=== PATIENT | female | born 1940 | race Caucasian/White ===

== ENCOUNTER 2019-02-17 07:10 | Observation (INO) ==
[2019-02-17] MEDS ORDERED: 0.9 % Sodium Chloride 1,000 ML IVC ONE (07:27)
[2019-02-17 07:55] LABS: INR 2.9; Prothrombin Time 32.6 Seconds (9.4-12.1)
[2019-02-17 08:07] LABS: Basophils % 0.7 %; Eosinophils # 0.1 K/mcL (0.0-0.6); Eosinophils % 1.3 %; Hematocrit 37.6 % (35.3-44.9); Hemoglobin 11.1 g/dL (11.5-15.4); Immature Granulocytes % 0.9 % (0-4); Lymphocytes # 1.1 K/mcL (0.6-4.6); Lymphocytes % 20.1 %; Mean Corpuscular HGB Conc 29.5 g/dL (31.6-35.5); Mean Corpuscular Hemoglobin 27.3 pg (28.0-33.3); Mean Corpuscular Volume 92.4 fL (83.0-100.0); Mean Platelet Volume 11.5 fL (9.4-12.4); Monocytes # 0.5 K/mcL (0.0-1.3); Monocytes % 8.5 %; Neutrophils # 3.7 K/mcL (1.6-8.9); Platelet Count 148 K/mcL (140-400); Red Blood Count 4.07 M/mcL (3.82-4.97); Red Cell Distribution Width 15.4 % (11.5-14.5); Segmented Neutrophils % 68.5 %
[2019-02-17 08:13] LABS: Alanine Aminotransferase 16 Units/L (7-52); Albumin 3.7 g/dL (3.5-5.7); Albumin/Globulin Ratio 1.2 (1.1-2.2); Alkaline Phosphatase 69 Units/L (34-104); Aspartate Amino Transferase 15 Units/L (13-39); BUN/Creatinine Ratio 29 (6-26); Bilirubin,Direct 0.1 mg/dL (0.0-0.2); Bilirubin,Indirect 0.3 mg/dL (0.0-1.2); Bilirubin,Total 0.4 mg/dL (0.3-1.0); Blood Urea Nitrogen 27 mg/dL (8-23); Calcium 9.1 mg/dL (8.6-10.3); Carbon Dioxide 28 mEq/L (23-29); Chloride 105 mEq/L (98-107); Glucose 134 mg/dL (70-105); Osmolality,Calculated 301 (280-300); Potassium 4.8 mEq/L (3.5-5.1); Sodium 142 mEq/L (136-145); Total Protein 6.7 g/dL (6.4-8.9); eGFR For Non-African Americans 59 (> 60)
--- NOTE | 2019-02-17 08:14 | Emergency Department Note ---
Disposition Clinical Impression: Lower GI bleed, Hematochezia Disposition: Admitted As Inpatient Condition: Good Time of Disposition: 09:31 GI Bleed HPI - General Chief complaint: ED GI Bleed Stated complaint: rectal bleeding Time Seen by Provider: 02/17/19 07:25 Source: patient Limitations: no limitations Nursing Notes Reviewed: Yes Vital Signs Reviewed: Yes - History of Present Illness HPI Narrative: 78-year-old female past medical history of hypertension, atrial fibrillation currently on warfarin presenting for a 2 week history of intermittent hematuria and hematochezia. Patient states that she follows with Dr. Sheth as PCP has received CT scan of the abdomen and pelvis for concerns of intermittent hematuria without remarkable results. Patient states she has not had recent hematuria but has not for the last 2 weeks that she should she has had intermittent hematochezia. Patient noticed that she has had blood on the toilet paper after wiping which has progressed to santa blood in the toilet bowl. Patient states that the blood is bright red or dark red in nature but denies black or sticky bowel movement. Patient states that she has no pain in her abdomen or otherwise, no chest pain, admits to some lightheadedness and dizziness as well as dyspnea. No other concerns or complaints at this time. Pt Subjective Complaint: gross hematochezia Onset (ago): week(s) Consistency: intermittent Severity: moderate Treatments Prior to Arrival: none - Related Data Home Medications Medication Instructions Recorded Confirmed Aspirin [Adult Low Dose Aspirin EC] 81 mg PO DAILY 01/01/16 02/17/19 Ferrous Sulfate [Iron] 325 mg PO BID 01/01/16 02/17/19 Furosemide [Lasix] 40 mg PO DAILY PRN 01/01/16 02/17/19 Gabapentin [Neurontin] 300 mg PO BID 01/01/16 02/17/19 LORazepam [Lorazepam] 1 mg PO PRN PRN 01/01/16 02/17/19 Metformin HCl [Glucophage] 850 mg PO BID 01/01/16 02/17/19 Metoprolol [Lopressor] 100 mg PO BID 01/01/16 02/17/19 Warfarin [Coumadin] 5 mg PO DAILY 01/01/16 12/01/17 glipiZIDE [Glucotrol] 10 mg PO BID 01/01/16 02/17/19 Fish Oil/Dha/Epa [Fish Oil 1,200 1,000 mg PO BID 01/29/16 02/17/19 mg Fish Oil] Warfarin [Coumadin] 7.5 mg PO Q48H 01/29/16 02/17/19 Hydrocodone/Acetaminophen [[place] 1 tab PO Q6H PRN 10/07/16 02/17/19 5-325 Tablet] Anastrozole [Arimidex] 1 mg PO DAILY 12/01/17 02/17/19 Lisinopril [Zestril] 5 mg PO DAILY 12/01/17 02/17/19 Previous Rx's Medication Instructions Recorded Acetaminophen [Tylenol] 650 mg PO Q6HR PRN #0 tablet 10/08/16 HYDROcodone/Acet 5/325 mg [[place] 1 tab PO Q6HR PRN #25 tablet 10/08/16 5-325 mg] Allergies Allergy/AdvReac Type Severity Reaction Status Date / Time adhesive Allergy Rash Verified 01/29/16 15:11 adhesive tape Allergy Rash Verified 01/29/16 15:11 Review of Systems: See history of present illness for greater detail. Constitutional: Denies: fever, chills HEENT: Denies dysphagia/odynophagia, lymphadenopathy Cardiovascular: Denies: chest pain Respiratory: Admits to dyspnea. Denies: cough, hemoptysis Gastrointestinal: Admits to hematochezia without gross melena. Denies: abdominal pain, nausea, vomiting, diarrhea, constipation, hematemesis, melena, Genitourinary: Admits hematuria Musculoskeletal: Denies: back pain, neck pain Integumentary: Denies: rash Neurological: Admits to lightheadedness/dizziness. Denies: headache, weakness, numbness, paresthesias, difficulty with ambulation. Endocrine: Denies: fatigue All systems ED: reviewed and negative except as stated. Review of Systems: As Per HPI Past Medical History - Past Medical History Source: patient Medical history: Reports: atrial fibrillation, cancer, diabetes, hypertension, thyroid disease, venous stasis, other Surgical history: Reports: cholecystectomy Psychiatric history: Reports: anxiety, depression - Social History Smoking Status: Former smoker Smokeless Tobacco Status: No Alcohol use: Reports: none Drug use: Reports: none Physical Exam Constitutional: No acute distress, [id number], engaged to conversation, speech is fluid, answers questions appropriately Neuro: GCS 15, no overt focal neurological deficits Head: Atraumatic, normocephalic Eyes: Pupils equal, round and reactive to light, no scleral icterus, no conjunctival injection Mouth: No lip swelling, perioral cyanosis, drooling, or trismus. Neck: Trachea midline without deviation. Anterior neck is supple without swelling, no overt thyromegaly noted. Chest: Symmetric chest wall rise Heart: Cardiac rhythm and rate are regular with S1 and S2 , no S3 or S4 appreciated, no murmurs, rubs, or clicks. Lungs: Lungs are clear to auscultation bilaterally, without accessory muscle use or prolonged expiratory phase. No wheezes, rhonchi, rales or stridor a ppreciated. *Abdomen: Abdomen is flat, soft to palpation, normal bowel sounds, no evidence of bruising, surgical incisions, or abnormal mass. No abdominal bruit auscultated. Non-distended, non-rigid, no organomegaly, no ascites appreciated. No pulsatile mass, no tenderness or guarding to palpation in all four quadrants, no rebound Extremities: No evidence of pedal edema, joint swelling or erythema. Pulses/motor/sensory intact in all 4 extremities. Back exam: No CVA tenderness. Psychiatric exam: Patient displays a normal affect and mood for the environment. No overt signs of hallucination. Integumentary: Patient appears pale, skin is otherwise warm, dry, intact. No rash, cyanosis, diaphoresis, erythema. GI exam. Chaperoned present in room there is santa blood to rectal exam, no signs of overt internal or external hemorrhoids. Hemoccult is positive. - General Limitations: no limitations General appearance: alert, in no apparent distress Course Course Narrative: 2 IVs started and in bilateral antecubital fossa 1 L fluids given CBC, BMP, hepatic panel, fibrinogen, PT/INR, fibrinogen Type and screen EKG/old EKG Hemoccult Vital Signs Temperature 98.1 F 02/17/19 07:13 Pulse Rate 106 02/17/19 07:13 Respiratory Rate 18 02/17/19 07:13 Blood Pressure 152/101 02/17/19 07:13 O2 Sat by Pulse Oximetry 96 02/17/19 07:13 Temperature 97.6 F 02/17/19 09:43 Pulse Rate 84 02/17/19 09:43 Respiratory Rate 16 02/17/19 09:43 Blood Pressure 135/92 02/17/19 09:43 O2 Sat by Pulse Oximetry 93 02/17/19 09:43 Oxygen Delivery Oxygen Delivery Room Air GI Bleed - MDM Narrative Medical decision making narrative: Santa blood seen in the rectal exam Hemoccult is positive Chest x-ray shows cardiomegaly with vascular congestion 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 Patient verbalizes understanding and agreement with this plan Dr. Vogel accepts admission. - Lab Data Lab results reviewed: Yes I reviewed the patient's lab results. Result diagrams: 02/17/19 07:37 02/17/19 07:37 Lab Results 02/17/19 02/17/19 02/17/19 Range/Units 07:15 07:37 07:37 WBC 5.4 (4.3-11.1) K/mcL RBC 4.07 (3.82-4.97) M/mcL Hgb 11.1 L (11.5-15.4) g/dL Hct 37.6 (35.3-44.9) % MCV 92.4 (83.0-100.0) fL MCH 27.3 L (28.0-33.3) pg MCHC 29.5 L (31.6-35.5) g/dL RDW 15.4 H (11.5-14.5) % Plt Count 148 (140-400) K/mcL MPV 11.5 (9.4-12.4) fL Immature Gran % 0.9 (0-4) % Seg Neutrophils % 68.5 % Lymphocytes % 20.1 % Monocytes % 8.5 % Eosinophils % 1.3 % Basophils % 0.7 % Neutrophils # 3.7 (1.6-8.9) K/mcL Lymphocytes # 1.1 (0.6-4.6) K/mcL Monocytes # 0.5 (0.0-1.3) K/mcL Eosinophils # 0.1 (0.0-0.6) K/mcL Basophils # 0.0 (0.0-0.2) K/mcL PT 32.6 H (9.4-12.1) Seconds INR 2.9 Fibrinogen 426 H (169-393) mg/dL Sodium (136-145) mEq/L Potassium (3.5-5.1) mEq/L Chloride (98-107) mEq/L Carbon Dioxide (23-29) mEq/L BUN (8-23) mg/dL Creatinine (0.60-1.20) mg/dL Est GFR ( Amer) (> 60) Est GFR (Non-Af Amer) (> 60) BUN/Creatinine Ratio (6-26) Glucose (70-105) mg/dL Calculated Osmolality (280-300) Calcium (8.6-10.3) mg/dL Total Bilirubin (0.3-1.0) mg/dL Direct Bilirubin (0.0-0.2) mg/dL Indirect Bilirubin (0.0-1.2) mg/dL AST (13-39) Units/L ALT (7-52) Units/L Alkaline Phosphatase (34-104) Units/L Serum Total Protein (6.4-8.9) g/dL Albumin (3.5-5.7) g/dL Globulin (2.4-3.5) g/dL Albumin/Globulin Ratio (1.1-2.2) Stool Occult Bld Scrn Positive A (Negative) Blood Type Antibody Screen 02/17/19 02/17/19 Range/Units 07:37 07:37 WBC (4.3-11.1) K/mcL RBC (3.82-4.97) M/mcL Hgb (11.5-15.4) g/dL Hct (35.3-44.9) % MCV (83.0-100.0) fL MCH (28.0-33.3) pg MCHC (31.6-35.5) g/dL RDW (11.5-14.5) % Plt Count (140-400) K/mcL MPV (9.4-12.4) fL Immature Gran % (0-4) % Seg Neutrophils % % Lymphocytes % % Monocytes % % Eosinophils % % Basophils % % Neutrophils # (1.6-8.9) K/mcL Lymphocytes # (0.6-4.6) K/mcL Monocytes # (0.0-1.3) K/mcL Eosinophils # (0.0-0.6) K/mcL Basophils # (0.0-0.2) K/mcL PT (9.4-12.1) Seconds INR Fibrinogen (169-393) mg/dL Sodium 142 (136-145) mEq/L Potassium 4.8 (3.5-5.1) mEq/L Chloride 105 (98-107) mEq/L Carbon Dioxide 28 (23-29) mEq/L BUN 27 H (8-23) mg/dL Creatinine 0.92 (0.60-1.20) mg/dL Est GFR ( Amer) > 60 (> 60) Est GFR (Non-Af Amer) 59 L (> 60) BUN/Creatinine Ratio 29 H (6-26) Glucose 134 H (70-105) mg/dL Calculated Osmolality 301 H (280-300) Calcium 9.1 (8.6-10.3) mg/dL Total Bilirubin 0.4 (0.3-1.0) mg/dL Direct Bilirubin 0.1 (0.0-0.2) mg/dL Indirect Bilirubin 0.3 (0.0-1.2) mg/dL AST 15 (13-39) Units/L ALT 16 (7-52) Units/L Alkaline Phosphatase 69 (34-104) Units/L Serum Total Protein 6.7 (6.4-8.9) g/dL Albumin 3.7 (3.5-5.7) g/dL Globulin 3.0 (2.4-3.5) g/dL Albumin/Globulin Ratio 1.2 (1.1-2.2) Stool Occult Bld Scrn (Negative) Blood Type A POSITIVE Antibody Screen NEGATIVE - Radiology Data Radiology results reviewed: Yes I reviewed the patient's radiology results. Chest X-Ray 02/17/19 07:30 IMPRESSION: Cardiomegaly with central vascular congestion. D/ / Nikolas Peralta MD / Nikolas Peralta MD Interpreting Provider: Nikolas Peralta MD - EKG Data EKG attestation: Yes I reviewed and interpreted this EKG. EKG results narrative: Patient EKG shows atrial fibrillation with a heart rate of 92 bpm, QRS duration 94 ms, QT/QTc interval 364/451 ms respectively. There are no significant ST segment elevations, depressions, pathologic Q waves, abnormal T-wave inversions, or any other signs of acute ischemic change. This EKG performed today appears to be generally consistent with prior EKG performed on September 302016.
--- NOTE | 2019-02-17 09:10 | Emergency Department Note ---
Disposition Clinical Impression: Lower GI bleed Disposition: Admitted As Inpatient Condition: Good Time of Disposition: 09:00 General Adult HPI - General Chief complaint: ED GI Bleed Stated complaint: rectal bleeding Time Seen by Provider: 02/17/19 07:25 Source: patient Limitations: no limitations - History of Present Illness Pain Scale: 0 - Related Data Home Medications Medication Instructions Recorded Confirmed Aspirin [Adult Low Dose Aspirin EC] 81 mg PO DAILY 01/01/16 12/01/17 Ferrous Sulfate [Iron] 325 mg PO DAILY 01/01/16 12/01/17 Furosemide [Lasix] 40 mg PO DAILY PRN 01/01/16 12/01/17 Gabapentin [Neurontin] 300 mg PO TID 01/01/16 12/01/17 LORazepam [Lorazepam] 1 mg PO DAILY 01/01/16 12/01/17 Metformin HCl [Glucophage] 850 mg PO BID 01/01/16 12/01/17 Metoprolol [Lopressor] 100 mg PO BID 01/01/16 12/01/17 Warfarin [Coumadin] 5 mg PO Q48H 01/01/16 12/01/17 glipiZIDE [Glucotrol] 10 mg PO BID 01/01/16 12/01/17 Fish Oil/Dha/Epa [Fish Oil 1,200 1,000 mg PO BID 01/29/16 12/01/17 mg Fish Oil] Warfarin [Coumadin] 7.5 mg PO Q48H 01/29/16 12/01/17 Hydrocodone/Acetaminophen [[place] 1 tab PO Q6H PRN 10/07/16 12/01/17 5-325 Tablet] Anastrozole [Arimidex] 1 mg PO DAILY 12/01/17 12/01/17 Lisinopril [Zestril] 5 mg PO DAILY 12/01/17 12/01/17 Previous Rx's Medication Instructions Recorded Acetaminophen [Tylenol] 650 mg PO Q6HR PRN #0 tablet 10/08/16 HYDROcodone/Acet 5/325 mg [[place] 1 tab PO Q6HR PRN #25 tablet 10/08/16 5-325 mg] Allergies Allergy/AdvReac Type Severity Reaction Status Date / Time adhesive Allergy Rash Verified 01/29/16 15:11 adhesive tape Allergy Rash Verified 01/29/16 15:11 Past Medical History - Past Medical History Medical history: Reports: atrial fibrillation, cancer, diabetes, hypertension, thyroid disease, venous stasis, other Surgical history: Reports: cholecystectomy Psychiatric history: Reports: anxiety, depression - Social History Smoking Status: Former smoker Smokeless Tobacco Status: No Alcohol use: Reports: none Drug use: Reports: none Physical Exam - General Limitations: no limitations General appearance: alert, in no apparent distress Course Vital Signs Temperature 98.1 F 02/17/19 07:13 Pulse Rate 106 02/17/19 07:13 Respiratory Rate 18 02/17/19 07:13 Blood Pressure 152/101 02/17/19 07:13 O2 Sat by Pulse Oximetry 96 02/17/19 07:13 Temperature 98.1 F 02/17/19 07:13 Pulse Rate 79 02/17/19 08:53 Respiratory Rate 16 02/17/19 08:53 Blood Pressure 139/78 02/17/19 08:53 O2 Sat by Pulse Oximetry 98 02/17/19 08:53 Oxygen Delivery Oxygen Delivery Room Air Medical Decision Making - Lab Data Result diagrams: 02/17/19 07:37 02/17/19 07:37 Lab Results 02/17/19 02/17/19 02/17/19 Range/Units 07:15 07:37 07:37 WBC 5.4 (4.3-11.1) K/mcL RBC 4.07 (3.82-4.97) M/mcL Hgb 11.1 L (11.5-15.4) g/dL Hct 37.6 (35.3-44.9) % MCV 92.4 (83.0-100.0) fL MCH 27.3 L (28.0-33.3) pg MCHC 29.5 L (31.6-35.5) g/dL RDW 15.4 H (11.5-14.5) % Plt Count 148 (140-400) K/mcL MPV 11.5 (9.4-12.4) fL Immature Gran % 0.9 (0-4) % Seg Neutrophils % 68.5 % Lymphocytes % 20.1 % Monocytes % 8.5 % Eosinophils % 1.3 % Basophils % 0.7 % Neutrophils # 3.7 (1.6-8.9) K/mcL Lymphocytes # 1.1 (0.6-4.6) K/mcL Monocytes # 0.5 (0.0-1.3) K/mcL Eosinophils # 0.1 (0.0-0.6) K/mcL Basophils # 0.0 (0.0-0.2) K/mcL PT 32.6 H (9.4-12.1) Seconds INR 2.9 Fibrinogen 426 H (169-393) mg/dL Sodium (136-145) mEq/L Potassium (3.5-5.1) mEq/L Chloride (98-107) mEq/L Carbon Dioxide (23-29) mEq/L BUN (8-23) mg/dL Creatinine (0.60-1.20) mg/dL Est GFR ( Amer) (> 60) Est GFR (Non-Af Amer) (> 60) BUN/Creatinine Ratio (6-26) Glucose (70-105) mg/dL Calculated Osmolality (280-300) Calcium (8.6-10.3) mg/dL Total Bilirubin (0.3-1.0) mg/dL Direct Bilirubin (0.0-0.2) mg/dL Indirect Bilirubin (0.0-1.2) mg/dL AST (13-39) Units/L ALT (7-52) Units/L Alkaline Phosphatase (34-104) Units/L Serum Total Protein (6.4-8.9) g/dL Albumin (3.5-5.7) g/dL Globulin (2.4-3.5) g/dL Albumin/Globulin Ratio (1.1-2.2) Stool Occult Bld Scrn Positive A (Negative) Blood Type Antibody Screen 02/17/19 02/17/19 Range/Units 07:37 07:37 WBC (4.3-11.1) K/mcL RBC (3.82-4.97) M/mcL Hgb (11.5-15.4) g/dL Hct (35.3-44.9) % MCV (83.0-100.0) fL MCH (28.0-33.3) pg MCHC (31.6-35.5) g/dL RDW (11.5-14.5) % Plt Count (140-400) K/mcL MPV (9.4-12.4) fL Immature Gran % (0-4) % Seg Neutrophils % % Lymphocytes % % Monocytes % % Eosinophils % % Basophils % % Neutrophils # (1.6-8.9) K/mcL Lymphocytes # (0.6-4.6) K/mcL Monocytes # (0.0-1.3) K/mcL Eosinophils # (0.0-0.6) K/mcL Basophils # (0.0-0.2) K/mcL PT (9.4-12.1) Seconds INR Fibrinogen (169-393) mg/dL Sodium 142 (136-145) mEq/L Potassium 4.8 (3.5-5.1) mEq/L Chloride 105 (98-107) mEq/L Carbon Dioxide 28 (23-29) mEq/L BUN 27 H (8-23) mg/dL Creatinine 0.92 (0.60-1.20) mg/dL Est GFR ( Amer) > 60 (> 60) Est GFR (Non-Af Amer) 59 L (> 60) BUN/Creatinine Ratio 29 H (6-26) Glucose 134 H (70-105) mg/dL Calculated Osmolality 301 H (280-300) Calcium 9.1 (8.6-10.3) mg/dL Total Bilirubin 0.4 (0.3-1.0) mg/dL Direct Bilirubin 0.1 (0.0-0.2) mg/dL Indirect Bilirubin 0.3 (0.0-1.2) mg/dL AST 15 (13-39) Units/L ALT 16 (7-52) Units/L Alkaline Phosphatase 69 (34-104) Units/L Serum Total Protein 6.7 (6.4-8.9) g/dL Albumin 3.7 (3.5-5.7) g/dL Globulin 3.0 (2.4-3.5) g/dL Albumin/Globulin Ratio 1.2 (1.1-2.2) Stool Occult Bld Scrn (Negative) Blood Type A POSITIVE Antibody Screen NEGATIVE Attestation Statement - Attestation Attestation: I examined this patient and my medical decision-making was reviewed with the Resident Physician. I agree with the documented findings, disposition and treatment plan as described except to the extent set forth below. Rectal bleeding on Coumadin. Tachycardic on arrival with normal blood pressure, heart rate came down with IV fluid administration. Denies any abdominal pain. She has had some black stools, but takes iron therapy so this is normal for her. Dark red blood on Dr. Dominguez's rectal exam. Lightheadedness and dizziness without syncope, presyncope, chest pain or shortness of breath. Hemoglobin 11.1, INR therapeutic at 2.9. BUN Not significantly elevated. Will not reverse her anticoagulation at this point as she is hemodynamically stable. Patient accepted for admission by the hospitalist.
[2019-02-17] MEDS ORDERED: *HR* LORazepam 1 MG TABLET PO PRN (10:24)
[2019-02-17] MEDS ORDERED: Dextrose Gel 15 GM/37.5 ML TUBE PO PRN ×2 (10:27)
[2019-02-17] MEDS ORDERED: Ondansetron 4 MG/2 ML VIAL IVP PRN (10:27)
[2019-02-17] MEDS ORDERED: D5% in Water 1,000 ML IVC PRN (10:27)
[2019-02-17] MEDS ORDERED: *HR* Dextrose 50 % in Water (Syg) 50 ML SYRINGE IVP PRN (10:27)
[2019-02-17] MEDS ORDERED: Naloxone 0.4 MG/ML INJ IVP PRN (10:27)
--- NOTE | 2019-02-17 10:30 | Internal Med History&Physical ---
<Nikolas Figueroa - Last Filed: 02/17/19 10:51> Date of Encounter: 02/17/19 Time of Encounter: 10:23 Internal Medicine - H&P: HPI Chief complaint: Bright red blood per rectum Admitted From: Emergency Dept Plans for Post Hospital Care: Home History of present illness: Ms. Odell is a 78 year old female with a past medical history of diabetes mellitus, atrial fibrillation on warfarin, hypertension, and morbid obesity who presented to the ED complaining of bright red blood per rectum since last night. Patient reports symptoms initially started as blood on the tissue paper but have now progressed to making the water in the the toilet bowl red blood. Of note, patient reports hematuria [address] abdomen pelvis on 01/25/19 revealed colonic diverticula without acute diverticulitis, right renal cysts, lobular liver suspicious for cirrhosis, and enlarging left adrenal myelolipoma when compared to 06/04/2010 with an increasing soft tissue component, and a smaller 1.3 cm right adrenal myelolipoma which is not seen on the prior exam. In the ED, patient was hemodynamically stable, labs reveal hemoglobin 11.1 (stable from previous results), INR 2.9, and stool occult blood test was positive with gross blood in the rectal vault. Patient was given IV fluids, made NPO, and GI has been consulted. Past Med Surg Social Fam HX - Past Medical History Medical history: atrial fibrillation, cancer, diabetes, hypertension, thyroid disease, venous stasis, other Additional medical history: breast cancer Psychiatric history: anxiety, depression - Past Surgical History Surgical History: cholecystectomy Additional surgical history: Hip replacement x2, left masectomy - Social History Smoking Status: Former smoker Smokeless Tobacco Status: No Alcohol use: none Drug use: none - Family History Father Living Status: Age at : 62 Cause of : MD Mother Living Status: Age at : 33 Cause of : cancer Hx Family Cancer: Yes Grandmother Living Status: Cause of : stomach cancer Internal Medicine - H&P: Meds Furosemide [Lasix] 40 mg PO DAILY PRN 01/01/16 [History] Warfarin [Coumadin] 5 mg PO MOTHSA 01/01/16 [History] Fish Oil/Dha/Epa [Fish Oil 1,200 mg Fish Oil] 1 cap PO BID 01/29/16 [History] Anastrozole [Arimidex] 1 mg PO DAILY 12/01/17 [History] Lisinopril [Zestril] 5 mg PO DAILY 12/01/17 [History] Acetaminophen [Tylenol] 1,000 mg PO Q6HR PRN 02/17/19 [History] Aspirin [Adult Aspirin Regimen] 81 mg PO DAILY 02/17/19 [History] Ferrous Sulfate 325 mg PO BID 02/17/19 [History] Gabapentin [Neurontin] 300 mg PO BID 02/17/19 [History] HYDROcodone/Acet 5/325 mg [[place] 5-325 mg] 1 tab PO Q6HR PRN 02/17/19 [History] LORazepam [Ativan] 1 mg PO DAILY PRN 02/17/19 [History] Metoprolol Tartrate 100 mg PO BID 02/17/19 [History] Warfarin [Coumadin] 7.5 mg PO SUTUWEFR 02/17/19 [History] glipiZIDE [Glipizide] 10 mg PO BID 02/17/19 [History] metFORMIN [Glucophage] 850 mg PO BIDWM 02/17/19 [History] Allergy/AdvReac Type Severity Reaction Status Date / Time adhesive Allergy Rash Verified 02/17/19 19:22 adhesive tape Allergy Rash Verified 02/17/19 19:22 All Systems PM: A 10-system review of systems was performed and is negative for pertinent findings except as documented above in the HPI. - Constitutional Constitutional: fatigue, weakness, no chills, no falls - EENT Eyes: no blurry vision, no diplopia Nose, mouth and throat: no sinus pain, no sore throat - Cardiovascular Cardiovascular ROS IM: no chest pain, no dyspnea - Respiratory Respiratory: no cough, no wheezing - Gastrointestinal Gastrointestinal: abdominal pain, hematochezia, melena, no hematemesis, no [place], no vomiting - Genitourinary Genitourinary: hematuria, no urinary frequency, no urinary urgency - Musculoskeletal Musculoskeletal ROS IM: no back pain, no numbness, no tingling - Integumentary Integumentary IM: no new lesions, no rash - Neurological Neurological ROS: dizziness, weakness, no numbness, no tingling - Psychiatric Psychiatric: no anxiety, no depression - Endocrine Endocrine IM: fatigue, no polydipsia, no polyphagia, no polyuria - Constitutional Vitals: Temp Pulse Resp BP Pulse Ox 97.6 F 84 16 135/92 93 02/17/19 09:43 02/17/19 09:43 02/17/19 09:43 02/17/19 09:43 02/17/19 09:43 General appearance: Present: cooperative, A&O X 3, morbidly obese, pleasant, answers questions appropriately Exam: awake - Head Head exam: Present: atraumatic, normocephalic - Eye Eye exam: Present: EOMI, conjuntiva pink (Pale), sclera anicteric. Absent: PERRL Pupils: Absent: PERRL - ENT ENT exam: Present: mucous membranes dry, normal oropharynx - Neck Neck exam general surgery: Present: supple, trachea midline - Respiratory Respiratory exam: Present: CTAB. Absent: accessory muscle use, rales, rhonchi, wheezes - Cardiovascular Cardiovascular exam: Present: RRR, +S1, +S2. Absent: diastolic murmur, gallop, rubs, systolic murmur - GI/Abdominal GI/Abdominal exam: Present: normal bowel sounds, soft, no peritoneal signs. Absent: distended, tenderness - Extremities Exam Extremities exam: Present: warm, radial pulses palpable and symmetrical. Absent: calf tenderness, cyanotic, pedal edema - Back Exam Back exam: Present: normal inspection. Absent: paraspinal tenderness, tenderness - Neurological Exam Neurological exam: Present: alert, CN II-XII intact, oriented X3, no focal deficits. Absent: facial droop, speech deficit - Psychiatric Psychiatric exam: Present: normal affect, normal mood - Skin Skin exam: Present: dry, intact, pallor. Absent: normal color Internal Med - H&P Results - Labs CBC & Chem 7: 02/17/19 07:37 02/17/19 07:37 Labs: Short CBC 02/17/19 Range/Units 07:37 WBC 5.4 (4.3-11.1) K/mcL Hgb 11.1 L (11.5-15.4) g/dL Hct 37.6 (35.3-44.9) % Plt Count 148 (140-400) K/mcL Neutrophils # 3.7 (1.6-8.9) K/mcL BMP 02/17/19 07:37 Sodium 142 Potassium 4.8 Chloride 105 Carbon Dioxide 28 BUN 27 H Creatinine 0.92 Glucose 134 H Calcium 9.1 Liver Function 02/17/19 Range/Units 07:37 Total Bilirubin 0.4 (0.3-1.0) mg/dL Direct Bilirubin 0.1 (0.0-0.2) mg/dL AST 15 (13-39) Units/L ALT 16 (7-52) Units/L Alkaline Phosphatase 69 (34-104) Units/L Albumin 3.7 (3.5-5.7) g/dL - Pulse Oximetry Interpretation Digit-Finger O2 Sat by Pulse Oximetry: 93 (On Ambient air) - EKG Data -: EKG Interpreted by Myself Rate: tachycardia (A fibrillation heart rate 92, normal axis, no signs of ST elevation or depression) - EKG Data Prior EKG available for review: yes When compared to previous EKG: there is no significant change - Impressions ITS Impressions Chest X-Ray 02/17/19 07:30 IMPRESSION: Cardiomegaly with central vascular congestion. D/ / Nikolas Peralta MD / Nikolas Peralta MD Interpreting Provider: Nikolas Peralta MD - Assessment and Plan (1) Lower GI bleed Current Visit: Yes Status: Acute Assessment and plan: 78-year-old female on Coumadin for A. fib presents with bright red blood blood per rectum. CT abdomen pelvis on 01/25/19 revealed colonic diverticula without acute diverticulitis Patient denies having a previous colonoscopy. Patient is hemodynamically stable, labs reveal hemoglobin 11.1 (stable from p revious results), INR 2.9, and stool occult blood test was positive with gross blood in the rectal vault. Patient was given IV fluids in the ED. Trend H&H Type and screen performed. NPO, and GI has been consulted. (2) Anemia Current Visit: Yes Status: Acute Assessment and plan: Patient with acute lower GI bleed Hemoglobin 11.1 (stable from previous results) Trend H&H Type and screen performed. Qualifiers: Anemia type: unspecified type Qualified Code(s): D64.9 - Anemia, unspecified (3) A-fib Current Visit: Yes Status: Chronic Assessment and plan: Patient on Coumadin for atrial fibrillation. Hold Coumadin. Continue heparin for now Qualifiers: Atrial fibrillation type: chronic Qualified Code(s): I48.2 - Chronic atrial fibrillation (4) DM type 2 (diabetes mellitus, type 2) Current Visit: Yes Status: Chronic Assessment and plan: Hemoglobin A1c 6.0 on 12/28/18 Nothing by mouth, continue Accu-Cheks and low dose SSI every 6 hours. Qualifiers: Diabetes mellitus jail insulin use: without terminal operations manager use Diabetes mellitus complication status: without complication Qualified Code(s): E11.9 - Type 2 diabetes mellitus without complications (5) Morbid obesity with BMI of 45.0-49.9, adult Current Visit: Yes Status: Chronic Assessment and plan: Lifestyle modification. (6) DVT prophylaxis Current Visit: Yes Status: Acute Assessment and plan: Heparin subcutaneous TID - Time Spent With Patient Total time spent is greater than 50% in coordination of care (as documented) at patient's floor/unit and/or counseling patient: <Zoya Mahoney - Last Filed: 02/19/19 10:51> Date of Encounter: 02/17/19 Internal Medicine - H&P: HPI History of present illness: Ms. Odell is a 78 year old female All Systems PM: A 10-system review of systems was performed and is negative for pertinent f indings except as documented above in the HPI. - Constitutional Vitals: Temp Pulse Resp BP Pulse Ox 98.4 F 77 17 152/79 92 02/19/19 10:23 02/19/19 10:23 02/19/19 10:23 02/19/19 10:23 02/19/19 10:23 Internal Med - H&P Results - Labs CBC & Chem 7: 02/19/19 07:21 02/19/19 07:21 Labs: Short CBC 02/19/19 Range/Units 07:21 WBC 7.2 (4.3-11.1) K/mcL Hgb 12.0 (11.5-15.4) g/dL Hct 39.8 (35.3-44.9) % Plt Count 151 (140-400) K/mcL Neutrophils # 5.2 (1.6-8.9) K/mcL BMP 02/19/19 07:21 Sodium 142 Potassium 4.2 Chloride 107 Carbon Dioxide 26 BUN 15 Creatinine 0.88 Glucose 132 H Calcium 9.4 - Impressions ITS Impressions Chest X-Ray 02/17/19 07:30 IMPRESSION: Cardiomegaly with central vascular congestion. D/ / Nikolas Peralta MD / Nikolas Peralta MD Interpreting Provider: Nikolas Peralta MD - Assessment and Plan (1) DM type 2 (diabetes mellitus, type 2) Current Visit: Yes Status: Chronic Qualifiers: Diabetes mellitus jail insulin use: without terminal operations manager use Diabetes mellitus complication status: without complication Qualified Code(s): E11.9 - Type 2 diabetes mellitus without complications (2) A-fib Current Visit: Yes Status: Chronic Qualifiers: Atrial fibrillation type: chronic Qualified Code(s): I48.2 - Chronic atrial fibrillation (3) DVT prophylaxis Current Visit: Yes Status: Acute (4) Morbid obesity with BMI of 45.0-49.9, adult Current Visit: Yes Status: Chronic (5) Rectal bleeding Current Visit: Yes Status: Acute (6) Abnormal abdominal CT scan Current Visit: Yes Status: Chronic (7) Hypertension Current Visit: Yes Status: Chronic Qualifiers: Hypertension type: essential hypertension Qualified Code(s): I10 - Essential (primary) hypertension - Time Spent With Patient Total time spent is greater than 50% in coordination of care (as documented) at patient's floor/unit and/or counseling patient: - Attending Attestation I personally and independently interviewed and examined the patient, and I r eviewed the patient's medical records. I am in agreement with the assessment and proposed treatment plan. I discussed my findings and recommendation with the patient and answer his questions. The patient's medical records were edited to accurately reflect this encounter.
[2019-02-17] MEDS ORDERED: *HR* Phytonadione 10 MG/ML AMPUL SQ ONE (11:36)
[2019-02-17 11:43] LABS: Bilirubin,Urine Negative (Negative); Blood,Urine Large (Negative); Clarity,Urine Clear (Clear); Color,Urine Yellow (Yellow); Glucose,Urine (UA) Normal (Normal); Ketones,Urine Negative (Negative); Leukocyte Esterase,Urine Negative (Negative); Nitrite,Urine Negative (Negative); Protein,Urine Negative (Neg-Trace); Specific Gravity,Urine 1.005 (1.010-1.025); Urobilinogen,Urine Normal (Normal)
[2019-02-17 11:45] LABS: Bacteria,Urine None Seen per hpf (None-Few); Hyaline Casts,Urine None Seen per lpf (None-Few); RBC,Urine 15-30 per hpf (0-3); Squamous Epithelial Cell,Urine Many per lpf (None-Few)
[2019-02-17] MEDS: Insulin LISPRO 300 UNITS/3 ML VIAL SQ SCH ×2 (12:56→19:39)
[2019-02-17] MEDS ORDERED: PEG/Electrolytes/Ascorbic Acid 1 EACH POWD.PACK PO ONE (13:01)
--- NOTE | 2019-02-17 13:12 | Internal Medicine Consult Note ---
Date of Encounter: 02/17/19 Time of Encounter: 12:15 - Assessment and Plan (1) Rectal bleeding Current Visit: Yes Status: Acute Assessment and plan: The blood she is seeing sounds quite distal, maybe hemorroidal. Does not sound worrisome, but she does have microcytic incdices. Will have to check to see if Iron studies were done in the past. The fact that she had some hematuria as well, I beleive we need to stop the ASA and the Fish Oil. I have recommended bowel prep today, with Colonoscopy tomorrow. Risks such as perforation discussed. There are no alternatives. (2) DM type 2 (diabetes mellitus, type 2) Current Visit: Yes Status: Chronic Qualifiers: Diabetes mellitus skilled nursing insulin use: without skilled nursing use Diabetes mellitus complication status: without complication Qualified Code(s): E11.9 - Type 2 diabetes mellitus without complications (3) Morbid obesity with BMI of 45.0-49.9, adult Current Visit: Yes Status: Chronic (4) A-fib Current Visit: Yes Status: Chronic Qualifiers: Atrial fibrillation type: chronic Qualified Code(s): I48.2 - Chronic atrial fibrillation (5) Abnormal abdominal CT scan Current Visit: Yes Status: Chronic Assessment and plan: She does have an adrenal lesion that will requrire more work. I am concerned she could have Cirrhosis from fatty liver given the co-morbids.. as well. That can be evaluated as outpt. Internal Medicine - CN: HPI - Data of Consult Requesting Physician: Zoya Mahoney - Consult Narrative Reason for consult: Rectal Bleeding History of present illness: Ms. Odell is a 78 year old female Past Med Surg Social Fam HX - Past Medical History Medical history: atrial fibrillation, diabetes, hypertension, thyroid disease, venous stasis, other Additional medical history: breast cancer. Morbid obesity Psychiatric history: anxiety, depression - Past Surgical History Surgical History: cholecystectomy Additional surgical history: Hip replacement x2, left masectomy - Social History Smoking Status: Former smoker Smokeless Tobacco Status: No Alcohol use: none Drug use: none - Family History Father Living Status: Age at : 62 Cause of : [place] Mother Living Status: Age at : 33 Cause of : cancer Hx Family Cancer: Yes Grandmother Living Status: Cause of : stomach cancer - Constitutional Constitutional: no anorexia, no chills, no fatigue, no fever(s), no weakness, no weight gain, no weight loss - Cardiovascular Cardiovascular ROS IM: edema, irregular heart rhythm, lightheadedness, no chest pain, no diaphoresis, no dyspnea on exertion, no syncope - Respiratory Respiratory: no cough, no dyspnea, no pain on inspiration, no chest congestion - Gastrointestinal Gastrointestinal: change in bowel habits, hematemesis, no abdominal pain, no coffee ground emesis, no constipation, no heartburn, no loose stools, no melena, no nausea, no vomiting Additional comments: Initially 5 days ago appreciated blood on tissue... then the commode was more pink and noted more blood on paper.. Never had blood clots, anal pain, or seeing blood with stool. - Genitourinary Genitourinary: hematuria Internal Medicine - CN: Meds Aspirin [Adult Low Dose Aspirin EC] 81 mg PO DAILY 01/01/16 [History] Ferrous Sulfate [Iron] 325 mg PO BID 01/01/16 [History] Furosemide [Lasix] 40 mg PO DAILY PRN 01/01/16 [History] Gabapentin [Neurontin] 300 mg PO BID 01/01/16 [History] LORazepam [Lorazepam] 1 mg PO PRN PRN 01/01/16 [History] Metformin HCl [Glucophage] 850 mg PO BID 01/01/16 [History] Metoprolol [Lopressor] 100 mg PO BID 01/01/16 [History] Warfarin [Coumadin] 5 mg PO DAILY 01/01/16 [History] glipiZIDE [Glucotrol] 10 mg PO BID 01/01/16 [History] Fish Oil/Dha/Epa [Fish Oil 1,200 mg Fish Oil] 1,000 mg PO BID 01/29/16 [History] Warfarin [Coumadin] 7.5 mg PO Q48H 01/29/16 [History] Hydrocodone/Acetaminophen [[place] 5-325 Tablet] 1 tab PO Q6H PRN 10/07/16 [History] Acetaminophen [Tylenol] 650 mg PO Q6HR PRN #0 tablet 10/08/16 [Rx] HYDROcodone/Acet 5/325 mg [[place] 5-325 mg] 1 tab PO Q6HR PRN #25 tablet 10/08/16 [Rx] Anastrozole [Arimidex] 1 mg PO DAILY 12/01/17 [History] Lisinopril [Zestril] 5 mg PO DAILY 12/01/17 [History] Allergy/AdvReac Type Severity Reaction Status Date / Time adhesive Allergy Rash Verified 01/29/16 15:11 adhesive tape Allergy Rash Verified 01/29/16 15:11 Internal Med - CN: Exam - Constitutional Vitals: Temp Pulse Resp BP Pulse Ox 97.6 F 84 16 135/92 93 02/17/19 09:43 02/17/19 09:43 02/17/19 09:43 02/17/19 09:43 02/17/19 09:43 General appearance IM: Present: A&O X 3, morbidly obese, pleasant, answers questions appropriately - Head Head exam: Present: normal inspection - Eye Eye exam: Present: PERRL, conjuntiva pink, sclera anicteric - Neck Neck exam general surgery: Present: supple, trachea midline - Respiratory Respiratory exam: Present: CTAB. Absent: rales, respiratory distress, wheezes, tachypnea - Cardiovascular Cardiovascular exam IM: Present: irregular rhythm, +S1, +S2. Absent: JVD, tachycardia - GI/Abdominal GI/Abdominal exam IM: Present: firm, normal bowel sounds. Absent: guarding, rebound, rigid, splenomegaly, tenderness, no peritoneal signs - Extremities Exam Additional comments: 1 + pitting to the knees Internal Medicine - CN: Reslt - Labs CBC & Chem 7: 02/17/19 07:37 02/17/19 07:37 Labs: Short CBC 02/17/19 Range/Units 07:37 WBC 5.4 (4.3-11.1) K/mcL Hgb 11.1 L (11.5-15.4) g/dL Hct 37.6 (35.3-44.9) % Plt Count 148 (140-400) K/mcL Neutrophils # 3.7 (1.6-8.9) K/mcL BMP 02/17/19 07:37 Sodium 142 Potassium 4.8 Chloride 105 Carbon Dioxide 28 BUN 27 H Creatinine 0.92 Glucose 134 H Calcium 9.1 Liver Function 02/17/19 Range/Units 07:37 Total Bilirubin 0.4 (0.3-1.0) mg/dL Direct Bilirubin 0.1 (0.0-0.2) mg/dL AST 15 (13-39) Units/L ALT 16 (7-52) Units/L Alkaline Phosphatase 69 (34-104) Units/L Albumin 3.7 (3.5-5.7) g/dL Urine 02/17/19 Range/Units 11:23 Urine Color Yellow (Yellow) Urine Clarity Clear (Clear) Urine pH 6.0 (5.0-8.0) pH Units Ur Specific [place] 1.005 L (1.010-1.025) Urine Protein Negative (Neg-Trace) mg/dL Urine Glucose (UA) Normal (Normal) mg/dL - ABG Interpretation ABG results: PT/INR, D-dimer PT 32.6 Seconds (9.4-12.1) H 02/17/19 07:37 - Impressions Impressions Chest X-Ray 02/17/19 07:30 IMPRESSION: Cardiomegaly with central vascular congestion. D/ / Nikolas Peralta MD / Nikolas Peralta MD Interpreting Provider: Nikolas Peralta MD Consult Discharge Plan - Plan Referrals: Delgado Hedrick DO [Primary Care Provider] -
[2019-02-17] MEDS ORDERED: *HR* Heparin 5,000 UNIT/ML VIAL SQ SCH (14:00)
[2019-02-17 14:43] LABS: % Iron Saturation 19 % (15-50); Iron 70 mcg/dL (50-170); Transferrin 268 mg/dL (203-362)
[2019-02-17 14:46] LABS: Ferritin 146 ng/mL (10-120)
[2019-02-17 16:19] LABS: Basophils # 0.1 K/mcL (0.0-0.2); Basophils % 0.9 %; Eosinophils # 0.1 K/mcL (0.0-0.6); Eosinophils % 1.7 %; Hematocrit 39.8 % (35.3-44.9); Hemoglobin 11.9 g/dL (11.5-15.4); Immature Granulocytes % 0.9 % (0-4); Lymphocytes # 1.2 K/mcL (0.6-4.6); Lymphocytes % 20.5 %; Mean Corpuscular HGB Conc 29.9 g/dL (31.6-35.5); Mean Corpuscular Hemoglobin 27.7 pg (28.0-33.3); Mean Corpuscular Volume 92.6 fL (83.0-100.0); Mean Platelet Volume 11.1 fL (9.4-12.4); Monocytes # 0.5 K/mcL (0.0-1.3); Monocytes % 8.8 %; Neutrophils # 3.9 K/mcL (1.6-8.9); Platelet Count 162 K/mcL (140-400); Red Cell Distribution Width 15.5 % (11.5-14.5); Segmented Neutrophils % 67.2 %
[2019-02-17] MEDS: Metoprolol 100 MG TABLET PO SCH (21:17)
[2019-02-17] MEDS: Acetaminophen 325 MG TABLET PO PRN (21:17)
[2019-02-18] MEDS: Insulin LISPRO 300 UNITS/3 ML VIAL SQ SCH ×4 (00:32→16:55)
[2019-02-18 04:24] LABS: Basophils # 0.1 K/mcL (0.0-0.2); Basophils % 0.8 %; Eosinophils # 0.1 K/mcL (0.0-0.6); Eosinophils % 1.5 %; Hematocrit 36.5 % (35.3-44.9); Lymphocytes # 1.2 K/mcL (0.6-4.6); Lymphocytes % 19.1 %; Mean Corpuscular HGB Conc 30.1 g/dL (31.6-35.5); Mean Corpuscular Hemoglobin 27.4 pg (28.0-33.3); Mean Platelet Volume 11.1 fL (9.4-12.4); Monocytes # 0.5 K/mcL (0.0-1.3); Monocytes % 8.4 %; Neutrophils # 4.2 K/mcL (1.6-8.9); Platelet Count 152 K/mcL (140-400); Red Blood Count 4.01 M/mcL (3.82-4.97); Red Cell Distribution Width 15.3 % (11.5-14.5); Segmented Neutrophils % 69.2 %
[2019-02-18 04:33] LABS: INR 2.3
[2019-02-18 04:48] LABS: BUN/Creatinine Ratio 23 (6-26); Blood Urea Nitrogen 18 mg/dL (8-23); Calcium 9.1 mg/dL (8.6-10.3); Carbon Dioxide 25 mEq/L (23-29); Chloride 109 mEq/L (98-107); Glucose 141 mg/dL (70-105); Osmolality,Calculated 296 (280-300); Potassium 4.9 mEq/L (3.5-5.1); Sodium 141 mEq/L (136-145); eGFR For Non-African Americans > 60 (> 60)
[2019-02-18] MEDS: Anastrozole 1 MG TABLET PO SCH (08:52)
[2019-02-18] MEDS: Metoprolol 100 MG TABLET PO SCH ×2 (08:52→19:38)
[2019-02-18] MEDS: Gabapentin 300 MG CAPSULE PO SCH ×2 (10:09→19:38)
[2019-02-18] MEDS ORDERED: *HR* Midazolam HCl 5 MG/5 ML VIAL IVP ONE ×2 (11:54→12:04)
[2019-02-18] MEDS ORDERED: *HR* FentaNYL (PF) 100 MCG/2 ML VIAL ONE (11:55)
[2019-02-18] MEDS ORDERED: Simethicone 40 MG/0.6 ML MLS IR ONE (12:04)
[2019-02-18] MEDS ORDERED: *HR* FentaNYL (PF) 100 MCG/2 ML VIAL IVP ONE (12:04)
--- NOTE | 2019-02-18 12:05 | Pre-Sedation Evaluation ---
Pre-sedation evaluation - Pre-sedation checklist Date of procedure: 02/18/19 Procedure: Colonoscopy Recent Vitals: Last Vital Signs Temp 98.3 F 02/18/19 10:39 Pulse 81 02/18/19 10:39 Resp 15 02/18/19 10:39 BP 155/86 02/18/19 10:39 Pulse Ox 95 02/18/19 10:39 H&P (including ROS) documented in medical record: Yes Previous reaction to sedatives/anesthetics: No Dietary Status: NPO after Midnight Airway Assessment: Patient can open mouth completely, TMJ function normal Dentition: No loose teeth or bridges Possible difficult airway: Yes If Yes;: Morbid obesity ASA Classification *see protocol: CLASS II-Mild systemic disease
--- NOTE | 2019-02-18 13:06 | Event Note ---
Date of Encounter: 02/18/19 Time of Encounter: 13:04 Colonoscopy: 1. Mild pandiverticulosis 2. Mid polyps, small 3, hot forceps polypectomy removed. 3. Prominent rectal veins, this could be a sign of possible cirrhosis as dictated on the CT scan report. 4. Medium size, sessile polyp noted in the 80 cm region from the anus, possible splenic flexure. Somewhat worrisome. This lesion has depth, biopsy 4, awaiting pathology, neoplasia is a concern. The patient is aware. Most likely the site of bleeding. 4 mL of ink used for location Plan, await pathology, continue to hold anticoagulants. If she remains stable, we can deal with this on an outpatient basis. Have started diet. Okay to start baby aspirin 81 mg daily if desired.
--- NOTE | 2019-02-18 14:12 | Internal Med Progress Note ---
Hospitalist Progress Note - Encounter Date of Encounter: 02/18/19 Time of Encounter: 15:27 - Subjective Interval History: Patient seen and examined earlier today with family present at bedside. Pt resting in bed and denies any abd pain, n/v, fever, or chills. She is s/p colonoscopy today (02/18/19). colonoscopy reports reviewed. Pt had a CT abd/plevis done on 01/25/19, pt aware of the CT findings and states she has an appointment set with her PCP already in regards to those CT results. She denies any weight loss, sob, chest pain at this time. She reports of being hungry. Ten point ROS is negative except as listed above. Tentative d/c in am if remains clinically stable. Pt reports of living alone and is able to ambulate with a walker. Refused home health services on discharge. States her family lives close by if she needs help - Exam Vitals: Temp Pulse Resp BP Pulse Ox 98.0 F 96 18 134/76 97 02/18/19 13:48 02/18/19 13:48 02/18/19 13:48 02/18/19 13:48 02/18/19 13:48 Exam: General: No acute distress, AAO x 3, morbidly obese HEENT: EOMI, NC/AT, no scleral icterus Respiratory: Clear to auscultate bilaterally, no wheezing, no rales Cardiovascular: Regular, Rate, Rhythm, No murmurs GI: Soft, Non tender, non distended, normal bowel sounds, obese Ext: Chronic venous stasis in bilateral LE, no tenderness, positive pulses Neuro: AAO x 3, no focal deficits, CN II-XII grossly intact Rest of the clinical exam is noncontributory - Assessment and Plan (1) Rectal bleeding Current Visit: Yes Status: Acute Assessment and Plan: s/p colonoscopy which reported mild polyps, s/p polyp resection Dr. Sol consultation appreciated will restart home dose of aspirin no acute bleeding reported at this time will closely monitor H&H holding anticoagulation at this time (2) DM type 2 (diabetes mellitus, type 2) Current Visit: Yes Status: Chronic Assessment and Plan: Sliding scale insulin algorithm holding oral antihyperglycemic agents at this time monitor FS and BG ADA diet (3) A-fib Current Visit: Yes Status: Chronic Assessment and Plan: Rate controlled with Metoprolol holding anticoagulation due to polyp resection today continue home dose of Aspirin (4) Hypertension Current Visit: Yes Status: Chronic Assessment and Plan: BP within acceptable range continue home medications closely monitor BP (5) DVT prophylaxis Current Visit: Yes Status: Acute Assessment and Plan: SCD (6) Abnormal abdominal CT scan Current Visit: Yes Status: Chronic Assessment and Plan: pt aware of the test findings and reports of having an outpatient follow up appointment with PCP in regards to CT results (7) Morbid obesity with BMI of 45.0-49.9, adult Current Visit: Yes Status: Chronic - Time Spent with Patient Total time spent is greater than 50% in coordination of care (as documented) at patient's floor/unit and/or counseling patient: 25 - 35 minutes Plan of Care Discussed with: patient (patient/family/RN) Internal Medicine: Result - Labs CBC & Chem 7: 02/18/19 03:26 02/18/19 03:26 Labs: Short CBC 02/17/19 02/18/19 Range/Units 16:05 03:26 WBC 5.8 6.1 (4.3-11.1) K/mcL Hgb 11.9 11.0 L (11.5-15.4) g/dL Hct 39.8 36.5 (35.3-44.9) % Plt Count 162 152 (140-400) K/mcL Neutrophils # 3.9 4.2 (1.6-8.9) K/mcL BMP 02/18/19 03:26 Sodium 141 Potassium 4.9 Chloride 109 H Carbon Dioxide 25 BUN 18 Creatinine 0.79 Glucose 141 H Calcium 9.1 - ABG Interpretation ABG results: PT/INR, D-dimer PT 26.0 Seconds (9.4-12.1) H 02/18/19 03:26 Consult Discharge Plan - Plan Referrals: Delgado Hedrick DO [Primary Care Provider] - (2) DM type 2 (diabetes mellitus, type 2) Qualifiers: Diabetes mellitus care home insulin use: without terminal superintendent use Diabetes mellitus complication status: without complication Qualified Code(s): E11.9 - Type 2 diabetes mellitus without complications (3) A-fib Qualifiers: Atrial fibrillation type: chronic Qualified Code(s): I48.2 - Chronic atrial fibrillation (4) Hypertension Qualifiers: Hypertension type: essential hypertension Qualified Code(s): I10 - Essential (primary) hypertension
[2019-02-18] MEDS ORDERED: *HR* LORazepam 1 MG TABLET PO PRN (15:28)
--- NOTE | 2019-02-18 19:16 | Electrocardiograph Report ---
[place] 5 Minutes [facility] Test Date: 2019-02-17 Pat Name: Joi Odell Department: EXAM3 Room: [facility] Gender: F Wire Communications Engineer: : 1940 Requested By: Phill Dominguez Order Number: [id number] Reading MD: Ab Martinez Measurements Intervals [place] Rate: 92 P: [place]: QRS: 55 QRSD: 94 T: 90 QT: 364 QTc: 451 Interpretive Statements Atrial fibrillation Electronically Signed On 02-18-2019 19:14:44 EDT by Ab Martinez
[2019-02-18] MEDS ORDERED: Insulin LISPRO 300 UNITS/3 ML VIAL SQ SCH (21:00)
[2019-02-18] MEDS: Acetaminophen 325 MG TABLET PO PRN (21:37)
[2019-02-19] MEDS: Insulin LISPRO 300 UNITS/3 ML VIAL SQ SCH ×2 (07:59→11:33)
[2019-02-19] MEDS: Gabapentin 300 MG CAPSULE PO SCH (08:03)
[2019-02-19] MEDS: Anastrozole 1 MG TABLET PO SCH (08:03)
[2019-02-19] MEDS: Metoprolol 100 MG TABLET PO SCH (08:03)
[2019-02-19 08:26] LABS: Basophils % 0.6 %; Eosinophils # 0.1 K/mcL (0.0-0.6); Eosinophils % 1.3 %; Hematocrit 39.8 % (35.3-44.9); Immature Granulocytes % 1.7 % (0-4); Lymphocytes # 1.2 K/mcL (0.6-4.6); Lymphocytes % 16.5 %; Mean Corpuscular HGB Conc 30.2 g/dL (31.6-35.5); Mean Corpuscular Hemoglobin 27.4 pg (28.0-33.3); Mean Corpuscular Volume 90.9 fL (83.0-100.0); Mean Platelet Volume 10.9 fL (9.4-12.4); Monocytes # 0.6 K/mcL (0.0-1.3); Monocytes % 8.2 %; Neutrophils # 5.2 K/mcL (1.6-8.9); Platelet Count 151 K/mcL (140-400); Red Blood Count 4.38 M/mcL (3.82-4.97); Red Cell Distribution Width 15.8 % (11.5-14.5); Segmented Neutrophils % 71.7 %
[2019-02-19 08:37] LABS: BUN/Creatinine Ratio 17 (6-26); Blood Urea Nitrogen 15 mg/dL (8-23); Calcium 9.4 mg/dL (8.6-10.3); Carbon Dioxide 26 mEq/L (23-29); Chloride 107 mEq/L (98-107); Glucose 132 mg/dL (70-105); Magnesium 1.6 mg/dL (1.6-2.6); Osmolality,Calculated 297 (280-300); Phosphorous 3.2 mg/dL (2.7-4.5); Potassium 4.2 mEq/L (3.5-5.1); Sodium 142 mEq/L (136-145); eGFR For Non-African Americans > 60 (> 60)
[2019-02-19] MEDS ORDERED: Aspirin Enteric Coated 81 MG Tablet PO SCH (09:00)
--- NOTE | 2019-02-19 11:32 | Discharge Summary ---
- NOTES TO OUTPATIENT PROVIDER Notes to Outpatient Provider: Pt was admitted for rectal bleeding, underwent colonscopy and had polyp resection due to which Coumadin is on hold for five days. Pt also has a history of abnormal CT abd/pelvis, needs close follow up. Also noted to remain hypertensive, Lisinopril dose was increased to 10mg PO qdaily. Orders not resulted at time of discharge: Pending orders 02/18/19 12:49 Surgical Pathology [PTH] Routine Date of Encounter: 02/19/19 Time of Encounter: 11:20 - Discharge Diagnosis (1) Rectal bleeding Priority: Primary Status: Resolved (2) DM type 2 (diabetes mellitus, type 2) Priority: Secondary Status: Chronic Qualifiers: Diabetes mellitus half-way insulin use: without half-way use Diabetes mellitus complication status: without complication Qualified Code(s): E11.9 - Type 2 diabetes mellitus without complications (3) A-fib Priority: Secondary Status: Chronic Qualifiers: Atrial fibrillation type: chronic Qualified Code(s): I48.2 - Chronic atrial fibrillation (4) Hypertension Priority: Secondary Status: Chronic Qualifiers: Hypertension type: essential hypertension Qualified Code(s): I10 - Essential (primary) hypertension (5) DVT prophylaxis Priority: Secondary Status: Acute (6) Abnormal abdominal CT scan Priority: Secondary Status: Chronic (7) Morbid obesity with BMI of 45.0-49.9, adult Priority: Secondary Status: Chronic Hospital course: Ms. Odell is a 78 year old female with PMH of diabetes mellitus, atrial fibrillation on Coumadin, hypertension, anxiety, hypothyroidism, morbid obesity who was admitted for lower GI bleed. Patient underwent colonoscopy done by Dr. Bai. Colonoscopy reported small polyps requiring resection, and pathology was sent for further evaluation to rule out malignancy. Anticoagulation is to remain on hold for 5 days after the procedure, and aspirin was restarted as per Dr. Bai recommendation. Patient was also noted to remain hypertensive due to which her home dose of lisinopril was increased to 10 mg once a day. Patient reported of living alone with family support. She refused home health services upon discharge. Patient is currently medically stable and denies any discomfort. Patient seen and examined at bedside today. She is eager to go home today. Patient was also found to have abnormal CT abdomen pelvis finding done on 01/25/2019, and is aware of the CT findings, and states she is already in follow-up with her PCP. Patient is medically stable for discharge to home. She is to follow up with PCP, and GI after discharge. Patient instructed to hold Coumadin for a total of 5 days since the date of colonoscopy after discharge. Patient's repeat H&H is within stable range. No recurrent bleeding has been reported. Patient demonstrates understanding of her diagnosis and agrees with the discharge care and plan. Patient will be discharged home later today. Discharge discussed with: patient, nurse - Time Spent with Patient Total time spent providing and/or coordinating discharge services: 35 minutes Time spent: Greater than 30 minutes - Discharge Medications Prescriptions: Continued Warfarin [Coumadin] 5 mg PO MOTHSA Furosemide [Lasix] 40 mg PO DAILY PRN PRN Reason: Edema Fish Oil/Dha/Epa [Fish Oil 1,200 mg Fish Oil] 1 cap PO BID Anastrozole [Arimidex] 1 mg PO DAILY Acetaminophen [Tylenol] 1,000 mg PO Q6HR PRN PRN Reason: Pain Aspirin [Adult Aspirin Regimen] 81 mg PO DAILY Ferrous Sulfate 325 mg PO BID Gabapentin [Neurontin] 300 mg PO BID glipiZIDE [Glipizide] 10 mg PO BID HYDROcodone/Acet 5/325 mg [[place] 5-325 mg] 1 tab PO Q6HR PRN PRN Reason: Pain LORazepam [Ativan] 1 mg PO DAILY PRN PRN Reason: Anxiety metFORMIN [Glucophage] 850 mg PO BIDWM Metoprolol Tartrate 100 mg PO BID Warfarin [Coumadin] 7.5 mg PO SUTUWEFR Changed Lisinopril [Zestril] 10 mg PO DAILY #30 tablet Home Medications: Furosemide [Lasix] 40 mg PO DAILY PRN 01/01/16 [History] Warfarin [Coumadin] 5 mg PO MOTHSA 01/01/16 [History] Fish Oil/Dha/Epa [Fish Oil 1,200 mg Fish Oil] 1 cap PO BID 01/29/16 [History] Anastrozole [Arimidex] 1 mg PO DAILY 12/01/17 [History] Acetaminophen [Tylenol] 1,000 mg PO Q6HR PRN 02/17/19 [History] Aspirin [Adult Aspirin Regimen] 81 mg PO DAILY 02/17/19 [History] Ferrous Sulfate 325 mg PO BID 02/17/19 [History] Gabapentin [Neurontin] 300 mg PO BID 02/17/19 [History] HYDROcodone/Acet 5/325 mg [[place] 5-325 mg] 1 tab PO Q6HR PRN 02/17/19 [History] LORazepam [Ativan] 1 mg PO DAILY PRN 02/17/19 [History] Metoprolol Tartrate 100 mg PO BID 02/17/19 [History] Warfarin [Coumadin] 7.5 mg PO SUTUWEFR 02/17/19 [History] glipiZIDE [Glipizide] 10 mg PO BID 02/17/19 [History] metFORMIN [Glucophage] 850 mg PO BIDWM 02/17/19 [History] Lisinopril [Zestril] 10 mg PO DAILY #30 tablet 02/19/19 [Rx] Allergies/Adverse Reactions: Allergy/AdvReac Type Severity Reaction Status Date / Time adhesive Allergy Rash Verified 02/17/19 19:22 adhesive tape Allergy Rash Verified 02/17/19 19:22 Date of admission: 02/17/19 09:02 Primary care physician: Delgado Hedrick DO Consults: 02/17/19 10:27 Consult to Gastroenterology [CONS] Routine Consulting Provider: Alirio Sol Reason for Consult: Lower GI bleed, Eval for colonoscopy Time Notified: 10:35 Call Completed: Yes Discharging clinician: Maureen Lozano Anticipated date of discharge: 02/19/19 - Constitutional Vitals: Temp Pulse Resp BP Pulse Ox 98.4 F 77 17 152/79 92 02/19/19 10:23 02/19/19 10:23 02/19/19 10:23 02/19/19 10:23 02/19/19 10:23 General appearance: Present: A&O X 3, morbidly obese, pleasant, answers questions appropriately Exam: General: No acute distress, AAO x 3, morbidly obese HEENT: EOMI, NC/AT, no scleral icterus Respiratory: Clear to auscultate bilaterally, no wheezing, no rales Cardiovascular: Regular, Rate, Rhythm, No murmurs GI: Soft, Non tender, non distended, normal bowel sounds, obese Ext: Chronic venous stasis in bilateral LE, no tenderness, positive pulses Neuro: AAO x 3, no focal deficits, CN II-XII grossly intact Rest of the clinical exam is noncontributory - Patient Status Disposition: Home, Self-Care Condition: Good Functional capacity at discharge: uses cane/walker - Discharge Instructions Follow Up With: Delgado Hedrick DO [Primary Care Provider] - Additional Instructions: 1. Please follow up with your primary care physician within 3-5 days after your discharge from the hospital. 2. Please continue to hold Coumadin for five days since the date of your colonoscopy (date of colonoscopy: 02/18/19). 3. Please ask your PCP about your CT abdomen pelvis results follow up 4. Since you were noted to have elevated BP, your home dose of lisinopril was increased to 10mg once a day. Please closely monitor your BP at home and take this BP log with you to your PCP's follow up appointment 5. Please follow up with GI within one to two weeks after your discharge from the hospital. 6. Resume all other home medications as prescribed by your primary care physician. - Diet and Activity Activity: resume usual activities as tolerated Diet: diabetic diet, low fat, low cholesterol, low salt diet
[2019-02-19 13:25] VITALS: BP 144/78
== END 2019-02-19 13:46 | disposition home or self-care (01) ==
LOC: 3NENU 07:10 → EMEROOARM 07:10 → SUATTDRO 09:02 → 3NENU 11:23
PROVIDERS: ADMIT Internal Medicine Nephrology; ATTEND Internal Medicine

== ENCOUNTER 2019-06-16 10:57 | Inpatient (IN) ==
[2019-06-16] MEDS ORDERED: cefOXitin 2,000 MG in Water for inj. (sterile) 20 ML IVP ONE (11:14)
[2019-06-16] MEDS ORDERED: Ringers Solution, Lactated 1,000 ML IVC SCH (11:15)
[2019-06-16] MEDS ORDERED: Acetaminophen IV 1,000 MG/100 ML INFUS..BTL IVPB ONE (11:16)
--- NOTE | 2019-06-16 11:22 | Anesthesia Evaluation PreOp ---
Date of Encounter: 06/16/19 Time of Encounter: 11:19 - Past History Planned Operation: Robotic colon resection splenic flexure colonoscopy Cardiac History: HTN, Hyperlipidemia, Arrhythmia (afib last dose coumadin 5days ago, PT/INR pending), Other (ECHO 05/18/19) Pulmonary History: Former smoker, Smoking Cessation (>30yrs ago) TAX ADJUSTER History: Other (anxiety, depression, diabetic neuropathy) Other Medical History: Diabetes Type II, Other (BMI 44, LE edema) Anesthesia History: No Prior Anesthetic Complications, Past Anesthesia (Cori, R-THR 04/2009, R-THR 07/2009, L-lumpectomy 06/2007, L mastectomy) Alcohol Use: none Drug use: none Medications and Allergies Furosemide [Lasix] 40 mg PO DAILY PRN 01/01/16 [History] Warfarin [Coumadin] 5 mg PO MOTHSA 01/01/16 [History] Fish Oil/Dha/Epa [Fish Oil 1,200 mg Fish Oil] 1 cap PO BID 01/29/16 [History] Anastrozole [Arimidex] 1 mg PO DAILY 12/01/17 [History] Acetaminophen [Tylenol] 1,000 mg PO Q6HR PRN 02/17/19 [History] Aspirin [Adult Aspirin Regimen] 81 mg PO DAILY 02/17/19 [History] Ferrous Sulfate 325 mg PO BID 02/17/19 [History] Gabapentin [Neurontin] 300 mg PO BID 02/17/19 [History] HYDROcodone/Acet 5/325 mg [[place] 5-325 mg] 1 tab PO Q6HR PRN 02/17/19 [History] LORazepam [Ativan] 1 mg PO DAILY PRN 02/17/19 [History] Metoprolol Tartrate 100 mg PO BID 02/17/19 [History] Warfarin [Coumadin] 7.5 mg PO SUTUWEFR 02/17/19 [History] glipiZIDE [Glipizide] 10 mg PO BID 02/17/19 [History] metFORMIN [Glucophage] 850 mg PO BIDWM 02/17/19 [History] Lisinopril [Zestril] 10 mg PO DAILY #30 tablet 02/19/19 [Rx] Allergy/AdvReac Type Severity Reaction Status Date / Time adhesive Allergy Rash Verified 06/16/19 11:37 adhesive tape Allergy Rash Verified 06/16/19 11:37 - Meds/Allergy Pre-op Review Medications Reviewed: Yes Allergies Reviewed: Yes Beta Blockers on Current Med List: Yes If Beta Blockers taken, Date/Time (Last Dose taken): 199906/15/19 Anesthesia Results - Labs Laboratory Tests 02/19/19 06/07/19 06/07/19 07:21 14:03 14:03 WBC 5.3 Hgb 10.9 L Hct 37.4 Plt Count 168 POC PT INR 2.5 APTT 44.9 H Sodium Potassium Chloride Carbon Dioxide BUN Creatinine Glucose 132 H 06/07/19 06/08/19 14:03 14:44 WBC Hgb Hct Plt Count POC PT 28.6 H INR APTT Sodium 143 Potassium 4.6 Chloride 107 Carbon Dioxide 29 BUN 25 H Creatinine 0.91 Glucose Anesthesia Exam O2 Sat Height 1.73 m Weight 131.542 kg Weight: 131kg NPO (# of Hours): >8 - HEENT Pupil (Motor): Pupils equal, EOMI Mallampati: II Teeth: Edentulous Oral Opening: Greater than 3 - TAX ADJUSTER LOC: Oriented TAX ADJUSTER Motor: Normal RUE, Normal LUE, Normal RLE, Normal LLE, Normal Face TAX ADJUSTER Sensory: Normal: RUE, LUE, RLE, LLE, Face - Cardiac Rhythm: Irregular - Pulmonary Breath Sounds: bilateral Clear Respiratory Effort: Symmetrical Anesthesia Assess/Plan ASA Score: 3 Level of consciousness: Cooperative Anesthetic Plan: General Monitoring Plan: Standard Monitors Recovery Plan: PACU
[2019-06-16] MEDS ORDERED: Ondansetron 4 MG/2 ML VIAL IVP ONE (11:43)
[2019-06-16] MEDS ORDERED: *HR* FentaNYL (PF) 100 MCG/2 ML VIAL IVP PRN (11:43)
[2019-06-16] MEDS ORDERED: *HR* OxyCODONE Immed Rel 5 MG TABLET PO PRN (11:43)
[2019-06-16 12:08] LABS: INR 1.4; Prothrombin Time 15.4 Seconds (9.4-12.1)
[2019-06-16] MEDS ORDERED: *HR* FentaNYL (PF) 100 MCG/2 ML VIAL ONE (12:22)
[2019-06-16] MEDS ORDERED: Ondansetron 4 MG/2 ML VIAL ONE (12:22)
[2019-06-16] MEDS ORDERED: *HR* Midazolam HCl 2 MG/2 ML VIAL ONE (12:22)
[2019-06-16] MEDS ORDERED: Lidocaine -MPF 2% 2 ML VIAL ONE ×2 (12:22→12:23)
[2019-06-16] MEDS ORDERED: *HR* Propofol 200 MG/20 ML VIAL IVP ONE (12:22)
[2019-06-16] MEDS ORDERED: *HR* Rocuronium Bromide 50 MG/5 ML VIAL ONE ×2 (12:22→14:10)
[2019-06-16] MEDS ORDERED: Lidocaine HCL 4 ML Topical Solution (Laryng-O-Jet Kit Sterile Pak) TP ONE (12:25)
[2019-06-16] MEDS ORDERED: *HR* Succinylcholine 200 MG/10 ML VIAL IVP ONE (12:28)
[2019-06-16] MEDS ORDERED: Isovue-300 150 ML INFUS..BTL ONE (12:31)
--- NOTE | 2019-06-16 12:46 | History & Physical Report ---
Date of Encounter: 06/16/19 Time of Encounter: 12:45 24 Hour HP Update - Instructions Instructions: If the History and Physical is less than 30 days old and was completed prior to A.M. admission and or procedure and has NOT been updated on calendar day of procedure please complete this update prior to performing procedure. - Update Patient reports changes in Medical Condition: No Changes in examination, assessment, or condition: No Changes in Medication: No Preop tests/diagnostics Reviewed: Yes Surgery Remains Indicated: Yes Consent for Planned Operative Procedure(s) Verified: Yes - Pre-Operative Checklist Preoperative Checklist Indicated: Yes Prophylactic Antibiotic Ordered: Yes Home Medications Include Beta Nikunj: Yes Beta Nikunj Taken Today (Day of Surgery): Yes
[2019-06-16] MEDS ORDERED: *HR* HYDROMORPHONE 2 MG/ML VIAL ONE (14:28)
[2019-06-16] MEDS ORDERED: Neostigmine Methylsulfate 3 MG/3 ML SYRINGE ONE (15:15)
--- NOTE | 2019-06-16 15:59 | Operative Note ---
Date of procedure: 06/16/19 Pre-op diagnosis: Rectosigmoid colon cancer Post-op diagnosis: same Procedure: Colonoscopy with tattooing of rectosigmoid colon cancer utilizing 4 mL of Priya ink Diagnostic laparoscopy with identification a rectosigmoid tumor Exporter laparotomy with segmental rectosigmoid resection and stapled anastomosis Anesthesia: JOSHUA Surgeon: Agapito Garcia Was there an marketing administrative assistant present: No Estimated blood loss (cc): 25 Specimen: Rectosigmoid colon Condition: stable Disposition: floor Procedure in Detail: After informed consent, the patient was taken the operating room placed in a supine position. The colonoscope was introduced into the anus after the patient been sedated anesthetized. Scope was negotiated to the cecum. The cecum and ileocecal valves were normal. The ascending colon, transverse colon, descending colon were all normal. The sigmoid colon had a firm nodule is approximately the size of a nickel quarter. It had an area of old scar from the previous polypectomy as well as a firm feel to it. Was concerning for a residual colon cancer. This area was tattooed with 4 mL of Priya ink. At that point the colonoscopic evaluation was terminated. The abdomen was prepped and draped. An incision was made to the right of the umbilicus. A 12 mm cannula site was placed under direct visualization. 3 additional trochars were placed in strategic fashion. The rectosigmoid colon was easily manipulated and had a very long mesentery. Therefore decision was made open at the level of the umbilicus. A limited laparotomy incision was performed. The rectosigmoid colon was brought out through the incision. A segmental resection was performed to include the mesentery. The mesentery flexion was scored with electrocautery. Multiple sigmoidal vessels were taken with Diamante clamps proximally and distally and transected. There were secured with 0 silk suture. Once the mesentery and then secured then the SHANNAN stapler was used to divide the rectum as well as the descending colon. Specimen was passed off the table and opened. Next a [id number] functional end-to-end anastomosis was created using a 75 mm SHANNAN linear stapler. Common enterotomy was closed with a TX 60 stapler. This was oversewn with 3-0 silk suture. The colon was placed back within the abdomen. The omentum was placed over this area. The fascia of the midline incision was closed with loop PDS suture in running fashion. Matt were placed on the skin incisions. And the robotic port sites were closed matt as well. She tolerated the operation well and was taken recovery in stable condition.
--- NOTE | 2019-06-16 16:49 | Anesthesia Evaluation Post Op ---
Date of Encounter: 06/16/19 Time of Encounter: 16:47 - Vital Signs Vital Signs: Vital Signs/O2 Sat, Most Current Temp Pulse Resp BP Pulse Ox 97.1 F L 74 14 126/78 93 06/16/19 16:35 06/16/19 16:35 06/16/19 16:35 06/16/19 16:35 06/16/19 16:35 - Lungs Lungs: Clear Ascult./Percussion - Airway Airway: Non-obstructed - Cardiovascular Regular Rate - Mental Status Mental Status: Asleep with brisk response to light stimulation - Pain Pain Scale: 0 Pain Scale used: Numeric (1 - 10) - Nausea Vomiting Nausea Vomiting: Not Present - Hydration Hydration: NPO - Discharge PostOp Status: Transfer Patient to floor
[2019-06-16] MEDS ORDERED: Naloxone 0.4 MG/ML INJ IVP PRN (16:57)
[2019-06-16] MEDS: 0.9 % Sodium Chloride 1,000 ML IVC SCH (17:47)
[2019-06-16] MEDS: Ketorolac 15 MG/ML VIAL IM SCH ×2 (17:48→23:24)
[2019-06-16] MEDS: *HR* Heparin 5,000 UNIT/ML VIAL SQ SCH (17:49)
[2019-06-17 02:26] LABS: Basophils % 0.1 %; Hematocrit 36.3 % (35.3-44.9); Hemoglobin 10.7 g/dL (11.5-15.4); Immature Granulocytes % 0.3 % (0-4); Lymphocytes # 0.4 K/mcL (0.6-4.6); Lymphocytes % 4.9 %; Mean Corpuscular HGB Conc 29.5 g/dL (31.6-35.5); Mean Corpuscular Hemoglobin 27.4 pg (28.0-33.3); Mean Corpuscular Volume 93.1 fL (83.0-100.0); Mean Platelet Volume 11.1 fL (9.4-12.4); Monocytes # 0.2 K/mcL (0.0-1.3); Monocytes % 2.8 %; Neutrophils # 6.9 K/mcL (1.6-8.9); Platelet Count 153 K/mcL (140-400); Red Cell Distribution Width 15.3 % (11.5-14.5); Segmented Neutrophils % 91.9 %; White Blood Count 7.5 K/mcL (4.3-11.1)
[2019-06-17 02:42] LABS: BUN/Creatinine Ratio 20 (6-26); Blood Urea Nitrogen 17 mg/dL (8-23); Calcium 8.3 mg/dL (8.6-10.3); Carbon Dioxide 25 mEq/L (23-29); Chloride 106 mEq/L (98-107); Glucose 176 mg/dL (70-105); Osmolality,Calculated 290 (280-300); Potassium 5.4 mEq/L (3.5-5.1); Sodium 137 mEq/L (136-145); eGFR For African Americans > 60 (> 60); eGFR For Non-African Americans > 60 (> 60)
[2019-06-17] MEDS: Ketorolac 15 MG/ML VIAL IM SCH ×4 (05:19→23:36)
[2019-06-17] MEDS: *HR* Heparin 5,000 UNIT/ML VIAL SQ SCH ×2 (05:20→17:46)
--- NOTE | 2019-06-17 09:06 | General Surgery Progress Note ---
Date of Encounter: 06/17/19 Time of Encounter: 09:05 - Assessment and Plan (1) Colon cancer Current Visit: Yes Status: Acute Patient is s/p robotic LAR POD 1. On clears. Patient had urinary retention and had to have the wiley replaced this am. OOB to chair today. Will advance to a full diet for dinner. Qualifiers: Colon location: sigmoid Qualified Code(s): C18.7 - Malignant neoplasm of sigmoid colon Subjective Patient reports: other (Patient denies any nausea or vomiting. No flatus. This am is her first meal-clears.) Objective Vital Signs - Last 8 Hours Temp Pulse Resp BP Pulse Ox 06/17/19 06:54 98.0 F 95 18 129/79 96 06/17/19 03:57 97.5 F L 78 16 125/79 94 Intake and Output 06/16/19 06/17/19 06/17/19 23:59 07:59 15:59 Intake Total 800 / 820 30 / 30 Output Total 170 / 170 0 / 0 Balance 630 / 650 30 / 30 Intake: IV Fluids 800 / 820 Lactated Ringers 1,000 ML @ 25 800 / 800 mls/hr IVC .Q24H [facility] Rx#: [id number] Oral 0 / 0 30 / 30 Output: Urine 0 / 0 Estimated Blood Loss Urine Amount (Catheter) 150 / 150 Other: Weight 140.2 kg Blood Glucose* 207 154 112 Patient Weight 06/17/19 23:59 Weight 140.2 kg - General physical appearance well nourished, no distress - Abdomen Abdomen: Present: bowel sounds present, soft, tender (Noted tenderness along dressing sites. No drainage on dressings.) - Labs 06/17/19 02:04 06/17/19 02:04 Diabetes panel 06/17/19 Range/Units 02:04 Sodium 137 (136-145) mEq/L Potassium 5.4 H (3.5-5.1) mEq/L Chloride 106 (98-107) mEq/L Carbon Dioxide 25 (23-29) mEq/L BUN 17 (8-23) mg/dL Creatinine 0.84 (0.60-1.20) mg/dL Glucose 176 H (70-105) mg/dL Calcium 8.3 L (8.6-10.3) mg/dL Calcium panel 06/17/19 Range/Units 02:04 Calcium 8.3 L (8.6-10.3) mg/dL Pituitary panel 06/17/19 Range/Units 02:04 Sodium 137 (136-145) mEq/L Potassium 5.4 H (3.5-5.1) mEq/L Chloride 106 (98-107) mEq/L Carbon Dioxide 25 (23-29) mEq/L BUN 17 (8-23) mg/dL Creatinine 0.84 (0.60-1.20) mg/dL Glucose 176 H (70-105) mg/dL Calcium 8.3 L (8.6-10.3) mg/dL Adrenal panel 06/17/19 Range/Units 02:04 Sodium 137 (136-145) mEq/L Potassium 5.4 H (3.5-5.1) mEq/L Chloride 106 (98-107) mEq/L Carbon Dioxide 25 (23-29) mEq/L BUN 17 (8-23) mg/dL Creatinine 0.84 (0.60-1.20) mg/dL Glucose 176 H (70-105) mg/dL Calcium 8.3 L (8.6-10.3) mg/dL Consult Discharge Plan - Plan Referrals: Agapito Garcia DO [Partnered Physician] - 07/04/19 12:05 pm Delgado Hedrick DO [Primary Care Provider] -
[2019-06-17] MEDS: 0.9 % Sodium Chloride 1,000 ML IVC SCH ×2 (09:47→23:44)
[2019-06-17] MEDS: *HR* LORazepam 2 MG/ML VIAL IVP PRN ×2 (12:38→21:38)
[2019-06-18] MEDS: Ketorolac 15 MG/ML VIAL IM SCH ×2 (05:20→11:17)
[2019-06-18] MEDS: *HR* Heparin 5,000 UNIT/ML VIAL SQ SCH (05:21)
[2019-06-18] MEDS ORDERED: Dextrose Gel 15 GM/37.5 ML TUBE PO PRN ×2 (09:33)
[2019-06-18] MEDS ORDERED: D5% in Water 1,000 ML IVC PRN (09:33)
[2019-06-18] MEDS ORDERED: *HR* Dextrose 50 % in Water (Syg) 50 ML SYRINGE IVP PRN (09:33)
--- NOTE | 2019-06-18 09:36 | General Surgery Progress Note ---
Date of Encounter: 06/18/19 Time of Encounter: 09:33 - Assessment and Plan (1) Colon cancer Current Visit: Yes Status: Acute Patient is s/p robotic LAR POD 2. On fulls. Advance to soft foods. Will remove wiley catheter and start subcutaneous insulin schedule. Patient has limited mobility as a baseline and I did explain that I am concerned about her being discharged home. She states that her daughter will be able to stay with her during her initial recovery. Will re-evaluate later to day; if she voids and has no issues then will likely DC home. Qualifiers: Colon location: sigmoid Qualified Code(s): C18.7 - Malignant neoplasm of sigmoid colon Subjective Patient reports: other (Patient denies any current nausea (did have nausea last night). Small amount of flatus.) Objective Vital Signs - Last 8 Hours Temp Pulse Resp BP Pulse Ox 06/18/19 06:49 98.5 F 107 18 137/81 93 06/18/19 03:55 98.4 F 113 15 146/81 93 Intake and Output 06/17/19 06/18/19 06/18/19 23:59 07:59 15:59 Intake Total 1120 / 2270 0 / 240 240 / 240 Output Total 550 / 1025 600 / 600 Balance 570 / 1245 -600 / -360 240 / -360 Intake: IV Fluids 1000 / 2000 0.9 % Sodium Chloride 1,000 ML 1000 / 2000 @ 75 mls/hr IVC .[id number] [facility] Rx #:[id number] Oral 120 / 270 0 / 240 240 / 240 Output: Urine 0 / 0 Catheter 550 / 1025 600 / 600 Urethral (Wiley) 550 / 1025 Other: Meal Dinner Breakfast Percent of Meal Consumed 90% 50% Weight 139.2 kg Blood Glucose* 129 129 Patient Weight 06/18/19 23:59 Weight 139.2 kg - General physical appearance well nourished, no distress - Abdomen Abdomen: Present: bowel sounds present, soft, tender (Mild incisional pain with palpation. Incision CDI without drainage or erythema) - Labs 06/17/19 02:04 06/17/19 02:04 Consult Discharge Plan - Plan Referrals: Agapito Garcia DO [Partnered Physician] - 07/04/19 12:05 pm Delgado Hedrick DO [Primary Care Provider] -
[2019-06-18] MEDS ORDERED: Ondansetron 4 MG/2 ML VIAL IVP PRN (11:07)
[2019-06-18] MEDS: Insulin LISPRO 300 UNITS/3 ML VIAL SQ SCH ×2 (11:17→17:19)
[2019-06-18 15:10] VITALS: BP 151/81
[2019-06-18] MEDS ORDERED: Metoprolol 100 MG TABLET PO STA (15:17)
--- NOTE | 2019-06-18 17:08 | Discharge Summary ---
Orders not resulted at time of discharge: Pending orders 06/16/19 15:51 Surgical Pathology [PTH] Routine Date of Encounter: 06/18/19 Time of Encounter: 17:10 - Discharge Diagnosis (1) Colon cancer Priority: Primary Status: Acute Qualifiers: Colon location: sigmoid Qualified Code(s): C18.7 - Malignant neoplasm of sigmoid colon (2) Hyperkalemia Priority: Secondary Status: Acute General Surgery Exam Initial Vital Signs Temp Pulse Resp BP Pulse Ox 97.9 F 85 18 135/64 92 06/16/19 11:22 06/16/19 11:22 06/16/19 11:22 06/16/19 11:22 06/16/19 11:22 - Eyes PERRL, normal ocular movement - Cardiovascular Cardiovascular exam: Present: tachycardia - Abdomen Abdomen general surgery: Present: bowel sounds present, soft, tender (mild icisional pain to palpation) - Hospital Course Hospital course: Ms. Odell is a 79 year old female with past medical history significant for hypertension and high-grade dysplasia of a colon polyp in the rectosigmoid region underwent a robotic colon resection on 06/16/2018. She was able to tolerate by mouth diet and able to transfer to chair near her normal baseline. She did have evidence of hyperkalemia with a potassium 5.4. On postoperative day 2 her potassium level was repeated and noted to be 4.5. Because of her improved status she was discharged home with instructions to follow-up with [facility] in 2 weeks. Time spent discussing smoking cessation with patient: 3 to 10 minutes - Time Spent with Patient Total time spent providing and/or coordinating discharge services: Less than 30 minutes - Discharge Medications Prescriptions: New OxyCODONE/APAP 5/325 [Percocet 5/325 MG] 1 each PO Q6HR PRN 7 Days #28 PRN Reason: Pain No Action Warfarin [Coumadin] 5 mg PO MO Furosemide [Lasix] 40 mg PO DAILY PRN PRN Reason: Edema Anastrozole [Arimidex] 1 mg PO QAM Aspirin [Adult Aspirin Regimen] 81 mg PO QAM Ferrous Sulfate 325 mg PO BID Gabapentin [Neurontin] 300 mg PO BID glipiZIDE [Glipizide] 10 mg PO BID HYDROcodone/Acet 5/325 mg [[place] 5-325 mg] 1 tab PO Q6HR PRN PRN Reason: Pain LORazepam [Ativan] 1 mg PO HS metFORMIN [Glucophage] 850 mg PO BIDWM Metoprolol Tartrate 100 mg PO BID Warfarin [Coumadin] 7.5 mg PO SUTUWETHFRSA Acetaminophen [Tylenol] 650 mg PO PRN PRN PRN Reason: Pain Lisinopril [Zestril] 10 mg PO QAM Home Medications: Furosemide [Lasix] 40 mg PO DAILY PRN 01/01/16 [History] Warfarin [Coumadin] 5 mg PO MO 01/01/16 [History] Anastrozole [Arimidex] 1 mg PO QAM 12/01/17 [History] Aspirin [Adult Aspirin Regimen] 81 mg PO QAM 02/17/19 [History] Ferrous Sulfate 325 mg PO BID 02/17/19 [History] Gabapentin [Neurontin] 300 mg PO BID 02/17/19 [History] HYDROcodone/Acet 5/325 mg [[place] 5-325 mg] 1 tab PO Q6HR PRN 02/17/19 [History] LORazepam [Ativan] 1 mg PO HS 02/17/19 [History] Metoprolol Tartrate 100 mg PO BID 02/17/19 [History] Warfarin [Coumadin] 7.5 mg PO SUTUWETHFRSA 02/17/19 [History] glipiZIDE [Glipizide] 10 mg PO BID 02/17/19 [History] metFORMIN [Glucophage] 850 mg PO BIDWM 02/17/19 [History] Acetaminophen [Tylenol] 650 mg PO PRN PRN 06/16/19 [History] Lisinopril [Zestril] 10 mg PO QAM 06/16/19 [History] OxyCODONE/APAP 5/325 [Percocet 5/325 MG] 1 each PO Q6HR PRN 7 Days #28 06/18/19 [Rx] Allergies/Adverse Reactions: Allergy/AdvReac Type Severity Reaction Status Date / Time adhesive Allergy Rash Verified 06/16/19 11:37 adhesive tape Allergy Rash Verified 06/16/19 11:37 Date of admission: 06/16/19 17:07 Primary care physician: Delgado Hedrick DO Discharging clinician: Naif Charlton Anticipated date of discharge: 06/18/19 Labs on day of discharge: Labs from last 24 hours 06/18/19 06/17/19 06/17/19 11:16 20:27 16:22 POC Glucose 143 H 129 H 118 H 06/17/19 06/17/19 11:53 08:05 POC Glucose 121 H 112 H - Patient Status Disposition: Home, Self-Care Condition: Good Overall status at discharge: patient is progressing back to baseline - Discharge Instructions Follow Up With: Agapito Garcia DO [Partnered Physician] - 07/04/19 12:05 pm Delgado Hedrick DO [Primary Care Provider] - Additional Instructions: No heave lifting greater than 15lbs for six weeks.
[2019-06-18 17:45] LABS: BUN/Creatinine Ratio 17 (6-26); Blood Urea Nitrogen 15 mg/dL (8-23); Calcium 8.6 mg/dL (8.6-10.3); Carbon Dioxide 24 mEq/L (23-29); Chloride 105 mEq/L (98-107); Glucose 137 mg/dL (70-105); Osmolality,Calculated 291 (280-300); Potassium 4.5 mEq/L (3.5-5.1); Sodium 139 mEq/L (136-145); eGFR For African Americans > 60 (> 60); eGFR For Non-African Americans > 60 (> 60)
== END 2019-06-18 18:18 | disposition home or self-care (01) | DRG 330 ==
LOC: SAMDAY 10:57 → 3ANU 17:07
PROVIDERS: ADMIT Surgery; ATTEND Surgery

== ENCOUNTER 2019-10-02 16:28 | Inpatient (IN) ==
[2019-10-02 18:13] LABS: Basophils % 0.7 %; Eosinophils # 0.1 K/mcL (0.0-0.6); Eosinophils % 2.1 %; Hemoglobin 9.5 g/dL (11.5-15.4); Immature Granulocytes % 0.2 % (0-4); Lymphocytes # 0.8 K/mcL (0.6-4.6); Mean Corpuscular HGB Conc 27.9 g/dL (31.6-35.5); Mean Corpuscular Volume 96.6 fL (83.0-100.0); Monocytes # 0.5 K/mcL (0.0-1.3); Monocytes % 8.3 %; Neutrophils # 4.4 K/mcL (1.6-8.9); Platelet Count 203 K/mcL (140-400); Red Blood Count 3.52 M/mcL (3.82-4.97); Red Cell Distribution Width 16.8 % (11.5-14.5); Segmented Neutrophils % 75.7 %; White Blood Count 5.8 K/mcL (4.3-11.1)
[2019-10-02 18:14] LABS: Anisocytosis 1+ (Not Present); Hypochromasia Present (Not Present); Platelet Estimate Normal (Normal)
[2019-10-02 18:19] LABS: Activated Partial Thrombo Time 51.6 Seconds (26.0-36.0)
[2019-10-02 18:24] LABS: Prothrombin Time 63.8 Seconds (9.4-12.1)
[2019-10-02 18:25] LABS: INR 5.6
[2019-10-02 18:33] LABS: BUN/Creatinine Ratio 33 (6-26); Blood Urea Nitrogen 45 mg/dL (8-23); Carbon Dioxide 28 mEq/L (23-29); Chloride 108 mEq/L (98-107); Glucose 78 mg/dL (70-105); Osmolality,Calculated 304 (280-300); Potassium 5.7 mEq/L (3.5-5.1); Sodium 142 mEq/L (136-145); Troponin I < 0.03 ng/mL (< 0.04); eGFR For African Americans 46 (> 60); eGFR For Non-African Americans 38 (> 60)
[2019-10-02 18:35] LABS: Bilirubin,Urine Negative (Negative); Blood,Urine Small (Negative); Clarity,Urine Clear (Clear); Color,Urine Yellow (Yellow); Glucose,Urine (UA) Normal (Normal); Ketones,Urine Negative (Negative); Leukocyte Esterase,Urine Small (Negative); Nitrite,Urine Negative (Negative); PH,Urine 5.5 pH Units (5.0-8.0); Protein,Urine Trace mg/dL (Neg-Trace); Specific Gravity,Urine 1.021 (1.010-1.025); Urobilinogen,Urine Normal (Normal)
[2019-10-02 18:37] LABS: Bacteria,Urine None Seen per hpf (None-Few); Hyaline Casts,Urine None Seen per lpf (None-Few); RBC,Urine 0-3 per hpf (0-3); Squamous Epithelial Cell,Urine Many per lpf (None-Few)
[2019-10-02] MEDS ORDERED: Furosemide 20 MG/2 ML VIAL IVP ONE (20:00)
[2019-10-02] MEDS ORDERED: Naloxone 0.4 MG/ML INJ IVP PRN (21:34)
[2019-10-02] MEDS ORDERED: Ondansetron 4 MG/2 ML VIAL IVP PRN (21:34)
[2019-10-02] MEDS ORDERED: Acetaminophen 325 MG TABLET PO PRN (21:34)
[2019-10-02] MEDS ORDERED: *HR* Dextrose 50 % in Water (Syg) 50 ML SYRINGE IVP PRN (21:41)
[2019-10-02] MEDS ORDERED: D5% in Water 1,000 ML IVC PRN (21:41)
[2019-10-02] MEDS ORDERED: *HR* HYDROcodone/Acet 5/325 mg TABLET PO PRN (21:41)
[2019-10-02] MEDS ORDERED: Dextrose Gel 15 GM/37.5 ML TUBE PO PRN ×2 (21:41)
[2019-10-03] MEDS: Insulin LISPRO 300 UNITS/3 ML VIAL SQ SCH ×4 (00:29→15:55)
[2019-10-03 03:23] LABS: Basophils % 0.8 %; Eosinophils # 0.1 K/mcL (0.0-0.6); Eosinophils % 2.3 %; Hematocrit 32.2 % (35.3-44.9); Hemoglobin 9.2 g/dL (11.5-15.4); Immature Granulocytes % 0.4 % (0-4); Lymphocytes # 0.8 K/mcL (0.6-4.6); Lymphocytes % 15.6 %; Mean Corpuscular HGB Conc 28.6 g/dL (31.6-35.5); Mean Corpuscular Hemoglobin 27.1 pg (28.0-33.3); Mean Corpuscular Volume 94.7 fL (83.0-100.0); Mean Platelet Volume 11.3 fL (9.4-12.4); Monocytes # 0.5 K/mcL (0.0-1.3); Monocytes % 9.5 %; Neutrophils # 3.7 K/mcL (1.6-8.9); Platelet Count 216 K/mcL (140-400); Red Cell Distribution Width 16.8 % (11.5-14.5); Segmented Neutrophils % 71.4 %; White Blood Count 5.2 K/mcL (4.3-11.1)
[2019-10-03 03:36] LABS: Albumin 3.1 g/dL (3.5-5.7); Albumin/Globulin Ratio 1.1 (1.1-2.2); Bilirubin,Total 0.3 mg/dL (0.3-1.0); Calcium 8.6 mg/dL (8.6-10.3); Globulin 2.9 g/dL (2.4-3.5); Potassium 5.8 mEq/L (3.5-5.1)
[2019-10-03 03:59] LABS: INR 4.7; Prothrombin Time 53.9 Seconds (9.4-12.1)
[2019-10-03] MEDS ORDERED: *HR* Dextrose 50 % in Water (Syg) 50 ML SYRINGE IVP ONE (04:54)
[2019-10-03 05:06] LABS: Anisocytosis 1+ (Not Present); Hypochromasia Present (Not Present); Microcytosis Present (Not Present); Platelet Estimate Normal (Normal)
[2019-10-03] MEDS ORDERED: Insulin Human Regular 10 UNIT in 0.9 % Sodium Chloride 10 ML IV ONE (05:15)
[2019-10-03] MEDS: SODIUM ZIRCONIUM CYCLOSILICATE 5 GM POWD.PACK PO SCH ×2 (05:47→11:30)
[2019-10-03] MEDS ORDERED: 0.9 % Sodium Chloride 250 ML ONE (08:22)
[2019-10-03] MEDS: Anastrozole 1 MG TABLET PO SCH (08:51)
[2019-10-03] MEDS: Aspirin Enteric Coated 81 MG Tablet PO SCH (08:51)
[2019-10-03] MEDS: Furosemide 40 MG/4 ML VIAL IVP SCH ×2 (11:11→19:38)
[2019-10-03] MEDS: Metoprolol 100 MG TABLET PO SCH ×2 (11:11→21:18)
[2019-10-03] MEDS ORDERED: Perflutren Lipid Microsphere 1.3 ML in 0.9 % Sodium Chloride 8.7 ML IVP ONE (16:38)
[2019-10-03] MEDS: *HR* Heparin 5,000 UNIT/ML VIAL SQ SCH (19:38)
[2019-10-03] MEDS: Gabapentin 300 MG CAPSULE PO SCH (21:18)
[2019-10-03] MEDS: *HR* LORazepam 1 MG TABLET PO SCH (21:18)
[2019-10-04 04:54] LABS: Red Cell Distribution Width 16.8 % (11.5-14.5)
[2019-10-04 04:55] LABS: Basophils % 0.6 %; Eosinophils # 0.1 K/mcL (0.0-0.6); Eosinophils % 2.4 %; Hematocrit 32.9 % (35.3-44.9); Hemoglobin 9.4 g/dL (11.5-15.4); Immature Granulocytes % 0.4 % (0-4); Lymphocytes # 0.7 K/mcL (0.6-4.6); Lymphocytes % 13.6 %; Mean Corpuscular HGB Conc 28.6 g/dL (31.6-35.5); Mean Corpuscular Hemoglobin 26.9 pg (28.0-33.3); Mean Corpuscular Volume 94.3 fL (83.0-100.0); Mean Platelet Volume 10.6 fL (9.4-12.4); Monocytes # 0.5 K/mcL (0.0-1.3); Neutrophils # 3.9 K/mcL (1.6-8.9); Platelet Count 218 K/mcL (140-400); Red Blood Count 3.49 M/mcL (3.82-4.97); White Blood Count 5.3 K/mcL (4.3-11.1)
[2019-10-04 05:13] LABS: Calcium 8.7 mg/dL (8.6-10.3); Magnesium 2.1 mg/dL (1.6-2.6); Potassium 5.7 mEq/L (3.5-5.1)
[2019-10-04 05:49] LABS: Anisocytosis 1+ (Not Present); Hypochromasia Present (Not Present); Platelet Estimate Normal (Normal)
[2019-10-04] MEDS: *HR* Heparin 5,000 UNIT/ML VIAL SQ SCH ×2 (06:14→16:44)
[2019-10-04] MEDS: SODIUM ZIRCONIUM CYCLOSILICATE 5 GM POWD.PACK PO SCH (06:14)
[2019-10-04] MEDS: Insulin LISPRO 300 UNITS/3 ML VIAL SQ SCH ×3 (08:13→16:42)
[2019-10-04] MEDS: Anastrozole 1 MG TABLET PO SCH (08:14)
[2019-10-04] MEDS: Metoprolol 100 MG TABLET PO SCH ×2 (08:14→20:33)
[2019-10-04] MEDS: Gabapentin 300 MG CAPSULE PO SCH ×2 (08:14→20:33)
[2019-10-04] MEDS: Aspirin Enteric Coated 81 MG Tablet PO SCH (08:14)
[2019-10-04] MEDS: Furosemide 40 MG/4 ML VIAL IVP SCH (08:15)
[2019-10-04 10:14] LABS: INR 2.3; Prothrombin Time 26.2 Seconds (9.4-12.1)
[2019-10-04] MEDS: cefTRIAXone 1,000 MG in Water for inj. (sterile) 10 ML IVP SCH (13:47)
[2019-10-04] MEDS: Nystatin POWDER 30 GM BOTTLE TP SCH (20:33)
[2019-10-04 21:13] LABS: VBG HCO3 29 mEq/L (21-27); VBG PCO2 74 mmHg (41-51); VBG PH 7.21 pH Units (7.32-7.42); VBG PO2 172 mmHg (25-50)
[2019-10-04] MEDS: *HR* LORazepam 1 MG TABLET PO SCH (22:20)
[2019-10-04 23:36] LABS: ABG Base Excess 3 mEq/L (-2 to 3); ABG HCO3 33 mEq/L (21-27); ABG Oxygen Saturation 96 % (95-98); ABG PCO2 82 mmHg (35-45); ABG PH 7.21 pH Units (7.32-7.45); ABG PO2 103 mmHg (85-104); ABG TCO2 35 mEq/L (20-26)
[2019-10-05] MEDS: *HR* LORazepam 1 MG TABLET PO SCH (00:58)
[2019-10-05 04:21] LABS: ABG Base Excess 2 mEq/L (-2 to 3); ABG HCO3 32 mEq/L (21-27); ABG Oxygen Saturation 93 % (95-98); ABG PCO2 84 mmHg (35-45); ABG PH 7.19 pH Units (7.32-7.45); ABG PO2 86 mmHg (85-104); ABG TCO2 34 mEq/L (20-26)
[2019-10-05] MEDS: *HR* Heparin 5,000 UNIT/ML VIAL SQ SCH (05:31)
[2019-10-05] MEDS: SODIUM ZIRCONIUM CYCLOSILICATE 5 GM POWD.PACK PO SCH ×2 (05:32→11:39)
[2019-10-05 06:50] LABS: Basophils % 0.4 %; Immature Granulocytes % 0.4 % (0-4); Mean Platelet Volume 11.2 fL (9.4-12.4); Platelet Count 204 K/mcL (140-400)
[2019-10-05 06:52] LABS: Eosinophils # 0.1 K/mcL (0.0-0.6); Eosinophils % 1.6 %; Hematocrit 33.2 % (35.3-44.9); Hemoglobin 9.1 g/dL (11.5-15.4); Lymphocytes # 0.8 K/mcL (0.6-4.6); Mean Corpuscular HGB Conc 27.4 g/dL (31.6-35.5); Mean Corpuscular Hemoglobin 26.8 pg (28.0-33.3); Mean Corpuscular Volume 97.6 fL (83.0-100.0); Monocytes # 0.6 K/mcL (0.0-1.3); Monocytes % 10.9 %; Red Cell Distribution Width 16.4 % (11.5-14.5); Segmented Neutrophils % 72.7 %; White Blood Count 5.5 K/mcL (4.3-11.1)
[2019-10-05 07:09] LABS: Calcium 8.7 mg/dL (8.6-10.3); Potassium 5.7 mEq/L (3.5-5.1)
[2019-10-05 07:21] LABS: Anisocytosis 1+ (Not Present); Hypochromasia Present (Not Present); Platelet Estimate Normal (Normal)
[2019-10-05] MEDS: Aspirin Enteric Coated 81 MG Tablet PO SCH (07:23)
[2019-10-05] MEDS: Insulin LISPRO 300 UNITS/3 ML VIAL SQ SCH ×4 (07:23→23:58)
[2019-10-05] MEDS: Anastrozole 1 MG TABLET PO SCH (07:23)
[2019-10-05] MEDS: Metoprolol 100 MG TABLET PO SCH ×2 (07:24→20:19)
[2019-10-05] MEDS: cefTRIAXone 1,000 MG in Water for inj. (sterile) 10 ML IVP SCH (07:25)
[2019-10-05] MEDS: Nystatin POWDER 30 GM BOTTLE TP SCH ×3 (07:25→20:20)
[2019-10-05] MEDS: Gabapentin 300 MG CAPSULE PO SCH (07:25)
[2019-10-05 08:07] LABS: ABG Base Excess 4 mEq/L (-2 to 3); ABG HCO3 34 mEq/L (21-27); ABG Oxygen Saturation 98 % (95-98); ABG PCO2 91 mmHg (35-45); ABG PH 7.18 pH Units (7.32-7.45); ABG PO2 147 mmHg (85-104); ABG TCO2 37 mEq/L (20-26); Blood Gas VT 500 cc
[2019-10-05] MEDS ORDERED: Furosemide 40 MG/4 ML VIAL IVP SCH (09:00)
[2019-10-05] MEDS ORDERED: Dexmedetomidine HCl 400 MCG/100 ML MLS IVC SCH (10:00)
[2019-10-05] MEDS ORDERED: FentaNYL (PF) 1,000 MCG in 0.9 % Sodium Chloride 80 ML IVC SCH (10:00)
[2019-10-05] MEDS ORDERED: Furosemide 40 MG/4 ML VIAL IVP ONE (10:10)
[2019-10-05] MEDS ORDERED: Naloxone 0.4 MG/ML INJ IVP PRN (10:10)
[2019-10-05] MEDS ORDERED: Dextrose Gel 15 GM/37.5 ML TUBE PO PRN ×2 (10:10)
[2019-10-05] MEDS ORDERED: Acetaminophen 325 MG TABLET PO PRN (10:10)
[2019-10-05] MEDS ORDERED: Ondansetron 4 MG/2 ML VIAL IVP PRN (10:10)
[2019-10-05] MEDS ORDERED: D5% in Water 1,000 ML IVC PRN (10:10)
[2019-10-05] MEDS ORDERED: *HR* Dextrose 50 % in Water (Syg) 50 ML SYRINGE IVP PRN (10:10)
[2019-10-05 10:21] LABS: ABG Base Excess 2 mEq/L (-2 to 3); ABG HCO3 31 mEq/L (21-27); ABG Oxygen Saturation 95 % (95-98); ABG PCO2 81 mmHg (35-45); ABG PO2 95 mmHg (85-104); ABG TCO2 34 mEq/L (20-26); Blood Gas VT 550 cc
[2019-10-05] MEDS ORDERED: cefTRIAXone 1,000 MG in Water for inj. (sterile) 10 ML IVP SCH (11:00)
[2019-10-05] MEDS ORDERED: Insulin LISPRO 300 UNITS/3 ML VIAL SQ SCH (11:30)
[2019-10-05 11:33] LABS: Bilirubin,Urine Small (Negative); Blood,Urine Negative (Negative); Clarity,Urine Clear (Clear); Color,Urine Yellow (Yellow); Glucose,Urine (UA) Normal (Normal); Ketones,Urine Negative (Negative); Leukocyte Esterase,Urine Negative (Negative); Nitrite,Urine Negative (Negative); PH,Urine 5.5 pH Units (5.0-8.0); Protein,Urine Negative (Neg-Trace); Specific Gravity,Urine 1.019 (1.010-1.025); Urobilinogen,Urine Normal (Normal)
[2019-10-05 11:51] LABS: INR 1.6; Prothrombin Time 18.3 Seconds (9.4-12.1)
[2019-10-05] MEDS: Furosemide 240 MG in 0.9 % Sodium Chloride 96 ML IVC SCH (12:03)
[2019-10-05 12:08] LABS: Albumin 3.3 g/dL (3.5-5.7); Albumin/Globulin Ratio 1.2 (1.1-2.2); Bilirubin,Total 0.4 mg/dL (0.3-1.0); Calcium 8.8 mg/dL (8.6-10.3); Globulin 2.8 g/dL (2.4-3.5); Magnesium 2.2 mg/dL (1.6-2.6); Phosphorous 5.4 mg/dL (2.7-4.5); Potassium 5.8 mEq/L (3.5-5.1); Total Protein 6.1 g/dL (6.4-8.9)
[2019-10-05 12:24] LABS: Thyroid Stimulating Hormone 0.219 mcIU/mL (0.340-5.600)
[2019-10-05 12:52] LABS: ABG Base Excess 3 mEq/L (-2 to 3); ABG HCO3 32 mEq/L (21-27); ABG Oxygen Saturation 90 % (95-98); ABG PCO2 76 mmHg (35-45); ABG PH 7.23 pH Units (7.32-7.45); ABG PO2 72 mmHg (85-104); ABG TCO2 34 mEq/L (20-26); Blood Gas VT 550 cc
[2019-10-05] MEDS ORDERED: 0.9 % Sodium Chloride 250 ML IVC PRN (13:57)
[2019-10-05] MEDS ORDERED: 0.9 % Sodium Chloride 1,000 ML PRIME SCH (14:00)
[2019-10-05 15:24] LABS: Calcium 8.4 mg/dL (8.6-10.3); Potassium 5.2 mEq/L (3.5-5.1)
[2019-10-05] MEDS ORDERED: *HR* Heparin 10,000 UNIT/10 ML VIAL IV PRN (15:26)
[2019-10-05 15:41] LABS: Hepatitis B Surface Antigen Nonreactive (Nonreactive)
[2019-10-05 15:53] LABS: Estimated Average Glucose 97 mg/dl
[2019-10-05 15:59] LABS: Triiodothyronine (T3) Free 2.17 pg/mL (2.50-3.90)
[2019-10-05 16:10] LABS: Hepatitis B Core IgM Nonreactive (Nonreactive)
[2019-10-05] MEDS ORDERED: Calcium Gluconate 1gm/50mL 1 GM/50 ML BAG IVPB ONE (16:13)
[2019-10-05 16:49] LABS: Adenovirus Not Detected (Not Detect); Coronavirus 229E Not Detected (Not Detect); Coronavirus HKU1 Not Detected (Not Detect); Coronavirus NL63 Not Detected (Not Detect); Coronavirus OC43 Not Detected (Not Detect); Human Metapneumovirus Not Detected (Not Detect); Human Rhinovirus/Enterovirus Not Detected (Not Detect); Influenza A Subtype 2009 H1 Not Detected (Not Detect)
[2019-10-05 16:50] LABS: Bordetella Pertussis Not Detected (Not Detect); Chlamydophila pneumoniae Not Detected (Not Detect); Influenza B Not Detected (Not Detect); Mycoplasma pneumoniae Not Detected (Not Detect); Parainfluenza Virus 1 Not Detected (Not Detect); Parainfluenza Virus 2 Not Detected (Not Detect); Parainfluenza Virus 3 Not Detected (Not Detect); Parainfluenza Virus 4 Not Detected (Not Detect); Respiratory Syncytial Virus Not Detected (Not Detect)
[2019-10-05] MEDS: Heparin 25,000 UNIT/250 ML D5W 25,000 UNIT/250 ML IV.SOLN IVC SCH (17:30)
[2019-10-05] MEDS: Dexmedetomidine HCl 400 MCG/100 ML MLS IVC SCH ×2 (17:37→23:59)
[2019-10-05] MEDS: FentaNYL (PF) 1,000 MCG in 0.9 % Sodium Chloride 80 ML IVC SCH (17:37)
[2019-10-05] MEDS ORDERED: *HR* Heparin 5,000 UNIT/ML VIAL IVP PRN ×2 (18:00)
[2019-10-05] MEDS ORDERED: *HR* Heparin 5,000 UNIT/ML VIAL SQ SCH (18:00)
[2019-10-05 19:49] LABS: Hepatitis B Surface Antibody 11.71 mIU/mL
[2019-10-05 20:57] LABS: Calcium 8.7 mg/dL (8.6-10.3); Potassium 5.1 mEq/L (3.5-5.1)
[2019-10-05] MEDS ORDERED: Gabapentin 300 MG CAPSULE PO SCH (21:00)
[2019-10-05] MEDS ORDERED: *HR* LORazepam 1 MG TABLET PO SCH (21:00)
[2019-10-06 01:32] LABS: Protein/Creatinine Ratio,Urine 0.23 mg/mg (0.00-0.20)
[2019-10-06] MEDS: Heparin 25,000 UNIT/250 ML D5W 25,000 UNIT/250 ML IV.SOLN IVC SCH ×2 (04:23→20:45)
[2019-10-06 04:49] LABS: ABG Base Excess 6 mEq/L (-2 to 3); ABG HCO3 33 mEq/L (21-27); ABG Oxygen Saturation 93 % (95-98); ABG PCO2 61 mmHg (35-45); ABG PH 7.34 pH Units (7.32-7.45); ABG PO2 72 mmHg (85-104); ABG TCO2 35 mEq/L (20-26); Blood Gas Modality AVAPS; Blood Gas VT 550 cc
[2019-10-06] MEDS: SODIUM ZIRCONIUM CYCLOSILICATE 5 GM POWD.PACK PO SCH (05:31)
[2019-10-06 05:41] LABS: Eosinophils % 2.5 %; Red Cell Distribution Width 16.2 % (11.5-14.5)
[2019-10-06 05:43] LABS: Basophils % 0.8 %; Eosinophils # 0.1 K/mcL (0.0-0.6); Hematocrit 30.8 % (35.3-44.9); Hemoglobin 8.8 g/dL (11.5-15.4); Immature Granulocytes % 0.4 % (0-4); Lymphocytes # 0.6 K/mcL (0.6-4.6); Lymphocytes % 12.6 %; Mean Corpuscular HGB Conc 28.6 g/dL (31.6-35.5); Mean Corpuscular Hemoglobin 26.7 pg (28.0-33.3); Mean Corpuscular Volume 93.6 fL (83.0-100.0); Mean Platelet Volume 10.8 fL (9.4-12.4); Monocytes # 0.5 K/mcL (0.0-1.3); Monocytes % 9.9 %; Neutrophils # 3.6 K/mcL (1.6-8.9); Platelet Count 171 K/mcL (140-400); Red Blood Count 3.29 M/mcL (3.82-4.97); Segmented Neutrophils % 73.8 %; White Blood Count 4.9 K/mcL (4.3-11.1)
[2019-10-06] MEDS ORDERED: SODIUM ZIRCONIUM CYCLOSILICATE 5 GM POWD.PACK PO SCH (06:00)
[2019-10-06 06:15] LABS: Calcium 8.9 mg/dL (8.6-10.3); Magnesium 1.9 mg/dL (1.6-2.6); Phosphorous 4.7 mg/dL (2.7-4.5); Potassium 4.9 mEq/L (3.5-5.1)
[2019-10-06] MEDS: Insulin LISPRO 300 UNITS/3 ML VIAL SQ SCH ×3 (06:22→16:14)
[2019-10-06 08:23] LABS: Hypochromasia Present (Not Present); Platelet Estimate Slight Decrease (Normal)
[2019-10-06] MEDS: Metoprolol 100 MG TABLET PO SCH ×2 (08:53→20:45)
[2019-10-06] MEDS: Furosemide 240 MG in 0.9 % Sodium Chloride 96 ML IVC SCH (08:54)
[2019-10-06] MEDS ORDERED: Furosemide 40 MG/4 ML VIAL IVP SCH (09:00)
[2019-10-06] MEDS ORDERED: Aspirin Enteric Coated 81 MG Tablet PO SCH (09:00)
[2019-10-06] MEDS ORDERED: cefTRIAXone 1,000 MG in Water for inj. (sterile) 10 ML IVP SCH ×2 (09:00→11:00)
[2019-10-06] MEDS ORDERED: Anastrozole 1 MG TABLET PO SCH (09:00)
[2019-10-06] MEDS ORDERED: Furosemide 240 MG in 0.9 % Sodium Chloride 96 ML IVC SCH (09:35)
[2019-10-06] MEDS: Nystatin POWDER 30 GM BOTTLE TP SCH ×2 (10:17→20:45)
[2019-10-06] MEDS: FentaNYL (PF) 1,000 MCG in 0.9 % Sodium Chloride 80 ML IVC SCH (12:03)
[2019-10-06 13:31] LABS: VBG Ionized Calcium 1.17 mmol/L (1.15-1.35)
[2019-10-06 13:43] LABS: Calcium 8.9 mg/dL (8.6-10.3); Potassium 4.7 mEq/L (3.5-5.1)
[2019-10-06 13:45] LABS: Heparin anti-factor XA UFH 0.84 IU/mL (0.30-0.70)
[2019-10-06] MEDS ORDERED: Warfarin perPT PO PRN (18:00)
[2019-10-06] MEDS ORDERED: *HR* Warfarin 7.5 MG TABLET PO ONE (18:00)
[2019-10-06 18:13] LABS: INR 1.6; Prothrombin Time 18.1 Seconds (9.4-12.1)
[2019-10-06] MEDS ORDERED: Insulin LISPRO 300 UNITS/3 ML VIAL SQ SCH (21:00)
[2019-10-07 03:39] LABS: Basophils % 0.8 %; Eosinophils # 0.2 K/mcL (0.0-0.6); Eosinophils % 2.8 %; Hematocrit 30.8 % (35.3-44.9); Hemoglobin 9.2 g/dL (11.5-15.4); Immature Granulocytes % 0.2 % (0-4); Lymphocytes # 0.7 K/mcL (0.6-4.6); Lymphocytes % 12.5 %; Mean Corpuscular HGB Conc 29.9 g/dL (31.6-35.5); Mean Corpuscular Volume 90.3 fL (83.0-100.0); Mean Platelet Volume 10.9 fL (9.4-12.4); Monocytes # 0.5 K/mcL (0.0-1.3); Monocytes % 10.1 %; Neutrophils # 3.9 K/mcL (1.6-8.9); Platelet Count 183 K/mcL (140-400); Red Blood Count 3.41 M/mcL (3.82-4.97); Segmented Neutrophils % 73.6 %; White Blood Count 5.3 K/mcL (4.3-11.1)
[2019-10-07 03:46] LABS: INR 1.5; Prothrombin Time 17.4 Seconds (9.4-12.1)
[2019-10-07 03:48] LABS: VBG HCO3 35 mEq/L (21-27); VBG Ionized Calcium 1.08 mmol/L (1.15-1.35); VBG PCO2 45 mmHg (41-51); VBG PH 7.51 pH Units (7.32-7.42); VBG PO2 192 mmHg (25-50)
[2019-10-07] MEDS ORDERED: Naloxone 0.4 MG/ML INJ IVP PRN (03:51)
[2019-10-07] MEDS ORDERED: *HR* Heparin 5,000 UNIT/ML VIAL IVP PRN ×2 (03:51)
[2019-10-07] MEDS ORDERED: D5% in Water 1,000 ML IVC PRN (03:51)
[2019-10-07] MEDS ORDERED: *HR* Heparin 10,000 UNIT/10 ML VIAL IV PRN (03:51)
[2019-10-07] MEDS ORDERED: Dextrose Gel 15 GM/37.5 ML TUBE PO PRN ×2 (03:51)
[2019-10-07] MEDS ORDERED: *HR* Dextrose 50 % in Water (Syg) 50 ML SYRINGE IVP PRN (03:51)
[2019-10-07] MEDS ORDERED: Warfarin perPT PO PRN (03:51)
[2019-10-07] MEDS ORDERED: Acetaminophen 325 MG TABLET PO PRN (03:51)
[2019-10-07 04:02] LABS: Magnesium 1.6 mg/dL (1.6-2.6); Phosphorous 3.9 mg/dL (2.7-4.5); Potassium 4.1 mEq/L (3.5-5.1)
[2019-10-07] MEDS: Heparin 25,000 UNIT/250 ML D5W 25,000 UNIT/250 ML IV.SOLN IVC SCH ×2 (05:33→17:56)
[2019-10-07] MEDS ORDERED: SODIUM ZIRCONIUM CYCLOSILICATE 5 GM POWD.PACK PO SCH (06:00)
[2019-10-07 06:02] LABS: Heparin anti-factor XA UFH 0.34 IU/mL (0.30-0.70)
[2019-10-07] MEDS: Insulin LISPRO 300 UNITS/3 ML VIAL SQ SCH ×4 (08:06→20:13)
[2019-10-07] MEDS: Metoprolol 100 MG TABLET PO SCH ×2 (08:07→20:12)
[2019-10-07] MEDS: Aspirin Enteric Coated 81 MG Tablet PO SCH (08:07)
[2019-10-07] MEDS: Nystatin POWDER 30 GM BOTTLE TP SCH ×2 (08:15→20:13)
[2019-10-07] MEDS: Calcium Gluconate 1gm/50mL 1 GM/50 ML BAG IVPB SCH ×2 (08:24→08:59)
[2019-10-07] MEDS: Furosemide 40 MG/4 ML VIAL IVP SCH ×2 (08:24→17:03)
[2019-10-07] MEDS ORDERED: Furosemide 240 MG in 0.9 % Sodium Chloride 96 ML IVC SCH (10:00)
[2019-10-07] MEDS: Anastrozole 1 MG TABLET PO SCH (12:18)
[2019-10-07] MEDS: Ondansetron 4 MG/2 ML VIAL IVP PRN (12:20)
[2019-10-07] MEDS ORDERED: *HR* Warfarin 7.5 MG TABLET PO ONE (18:00)
[2019-10-08] MEDS: Furosemide 40 MG/4 ML VIAL IVP SCH ×4 (00:31→23:51)
[2019-10-08 06:52] LABS: Heparin anti-factor XA UFH 0.31 IU/mL (0.30-0.70)
[2019-10-08 06:53] LABS: INR 1.6; Prothrombin Time 18.1 Seconds (9.4-12.1)
[2019-10-08] MEDS: Aspirin Enteric Coated 81 MG Tablet PO SCH (09:36)
[2019-10-08] MEDS: Metoprolol 100 MG TABLET PO SCH ×2 (09:36→21:38)
[2019-10-08] MEDS: Anastrozole 1 MG TABLET PO SCH (09:36)
[2019-10-08] MEDS: Insulin LISPRO 300 UNITS/3 ML VIAL SQ SCH ×4 (09:37→21:01)
[2019-10-08] MEDS: Nystatin POWDER 30 GM BOTTLE TP SCH ×2 (09:37→21:39)
[2019-10-08] MEDS: Ondansetron 4 MG/2 ML VIAL IVP PRN (10:00)
[2019-10-08] MEDS: Heparin 25,000 UNIT/250 ML D5W 25,000 UNIT/250 ML IV.SOLN IVC SCH (14:13)
[2019-10-08] MEDS ORDERED: *HR* Warfarin 7.5 MG TABLET PO ONE (18:00)
[2019-10-09 06:20] LABS: Basophils % 0.5 %; Eosinophils # 0.1 K/mcL (0.0-0.6); Eosinophils % 3.7 %; Hematocrit 31.7 % (35.3-44.9); Hemoglobin 9.2 g/dL (11.5-15.4); Immature Granulocytes % 0.5 % (0-4); Lymphocytes # 0.5 K/mcL (0.6-4.6); Lymphocytes % 13.7 %; Mean Platelet Volume 10.4 fL (9.4-12.4); Monocytes # 0.3 K/mcL (0.0-1.3); Monocytes % 8.9 %; Neutrophils # 2.8 K/mcL (1.6-8.9); Platelet Count 167 K/mcL (140-400); Red Blood Count 3.41 M/mcL (3.82-4.97); Red Cell Distribution Width 15.9 % (11.5-14.5); Segmented Neutrophils % 72.7 %; White Blood Count 3.8 K/mcL (4.3-11.1)
[2019-10-09 06:48] LABS: BUN/Creatinine Ratio 30 (6-26); Blood Urea Nitrogen 31 mg/dL (8-23); Calcium 9.6 mg/dL (8.6-10.3); Carbon Dioxide > 45 mEq/L (23-29); Chloride 92 mEq/L (98-107); Glucose 129 mg/dL (70-105); Osmolality,Calculated 310 (280-300); Sodium 146 mEq/L (136-145); eGFR For African Americans > 60 (> 60); eGFR For Non-African Americans 52 (> 60)
[2019-10-09] MEDS: Insulin LISPRO 300 UNITS/3 ML VIAL SQ SCH ×4 (07:23→21:34)
[2019-10-09] MEDS: Heparin 25,000 UNIT/250 ML D5W 25,000 UNIT/250 ML IV.SOLN IVC SCH ×2 (07:27→11:36)
[2019-10-09] MEDS: Anastrozole 1 MG TABLET PO SCH (07:35)
[2019-10-09] MEDS: Metoprolol 100 MG TABLET PO SCH ×2 (07:36→21:38)
[2019-10-09] MEDS: Aspirin Enteric Coated 81 MG Tablet PO SCH (07:36)
[2019-10-09] MEDS: Nystatin POWDER 30 GM BOTTLE TP SCH ×2 (07:38→21:38)
[2019-10-09] MEDS: Furosemide 40 MG/4 ML VIAL IVP SCH ×3 (07:39→16:17)
[2019-10-09 12:53] LABS: INR 2.4; Prothrombin Time 27.7 Seconds (9.4-12.1)
[2019-10-09] MEDS: *HR* LORazepam 2 MG/ML VIAL IVP PRN (13:42)
[2019-10-10 04:33] LABS: BUN/Creatinine Ratio 30 (6-26); Blood Urea Nitrogen 31 mg/dL (8-23); Carbon Dioxide > 45 mEq/L (23-29); Chloride 92 mEq/L (98-107); Glucose 114 mg/dL (70-105); Osmolality,Calculated 307 (280-300); Potassium 3.7 mEq/L (3.5-5.1); Sodium 145 mEq/L (136-145); eGFR For African Americans > 60 (> 60); eGFR For Non-African Americans 52 (> 60)
[2019-10-10 05:43] LABS: INR 2.1; Prothrombin Time 24.1 Seconds (9.4-12.1)
[2019-10-10] MEDS: Insulin LISPRO 300 UNITS/3 ML VIAL SQ SCH ×4 (07:42→22:04)
[2019-10-10] MEDS: Metoprolol 100 MG TABLET PO SCH ×2 (10:15→22:03)
[2019-10-10] MEDS: Aspirin Enteric Coated 81 MG Tablet PO SCH (10:15)
[2019-10-10] MEDS: Furosemide 40 MG/4 ML VIAL IVP SCH ×3 (10:16→17:29)
[2019-10-10] MEDS: Anastrozole 1 MG TABLET PO SCH (10:32)
[2019-10-10] MEDS ORDERED: FLU Vac QV 19-20 (6Month+)/PF 0.5 ML SYRINGE IM ONE (11:38)
[2019-10-10] MEDS ORDERED: Bisacodyl 10 MG RECTAL SUPPOSITORY RC ONE (12:50)
[2019-10-10] MEDS: Nystatin POWDER 30 GM BOTTLE TP SCH ×2 (16:27→22:04)
[2019-10-10] MEDS ORDERED: *HR* Warfarin 5 MG TABLET PO ONE (18:00)
[2019-10-10] MEDS: *HR* LORazepam 2 MG/ML VIAL IVP PRN (22:03)
[2019-10-11 05:43] LABS: INR 1.9; Prothrombin Time 21.4 Seconds (9.4-12.1)
[2019-10-11 08:05] VITALS: BP 118/67
[2019-10-11] MEDS: Nystatin POWDER 30 GM BOTTLE TP SCH (08:06)
[2019-10-11] MEDS: Aspirin Enteric Coated 81 MG Tablet PO SCH (08:06)
[2019-10-11] MEDS: Insulin LISPRO 300 UNITS/3 ML VIAL SQ SCH ×2 (08:06→12:51)
[2019-10-11] MEDS: Anastrozole 1 MG TABLET PO SCH (08:06)
[2019-10-11] MEDS: Furosemide 40 MG/4 ML VIAL IVP SCH (08:07)
[2019-10-11] MEDS: Metoprolol 100 MG TABLET PO SCH (08:07)
[2019-10-11] MEDS ORDERED: Bisacodyl 10 MG RECTAL SUPPOSITORY RC ONE (12:07)
[2019-10-11] MEDS ORDERED: *HR* Warfarin 5 MG TABLET PO ONE (18:00)
== END 2019-10-11 14:57 | DRG 291 ==
LOC: EMEROOARM 16:28 → 3BNU 16:28 → SUATTDRO 19:45 → 3BNU 21:35 → SUATTDRO 10-04 14:39 → ICNU 10-05 10:39 → 2ANU 10-07 11:53
PROVIDERS: ADMIT Internal Medicine; ATTEND Family Medicine

== ENCOUNTER 2020-01-02 00:09 | Inpatient (IN) ==
[2020-01-02 01:24] LABS: Eosinophils % 0.6 %; Hemoglobin 7.4 g/dL (11.5-15.4); Mean Corpuscular Volume 96.7 fL (83.0-100.0)
[2020-01-02 01:26] LABS: Basophils % 0.4 %; Immature Granulocytes % 0.4 % (0-4); Lymphocytes # 0.6 K/mcL (0.6-4.6); Lymphocytes % 8.1 %; Mean Corpuscular HGB Conc 28.5 g/dL (31.6-35.5); Mean Corpuscular Hemoglobin 27.5 pg (28.0-33.3); Mean Platelet Volume 10.1 fL (9.4-12.4); Monocytes # 0.6 K/mcL (0.0-1.3); Monocytes % 8.5 %; Neutrophils # 5.8 K/mcL (1.6-8.9); Platelet Count 241 K/mcL (140-400); Red Blood Count 2.69 M/mcL (3.82-4.97); White Blood Count 7.1 K/mcL (4.3-11.1)
[2020-01-02 01:34] LABS: Prothrombin Time 67.9 Seconds (9.4-12.1)
[2020-01-02 01:54] LABS: Alanine Aminotransferase 13 Units/L (7-52); Albumin 3.1 g/dL (3.5-5.7); Albumin/Globulin Ratio 1.1 (1.1-2.2); Alkaline Phosphatase 63 Units/L (34-104); Aspartate Amino Transferase 17 Units/L (13-39); BUN/Creatinine Ratio 37 (6-26); Bilirubin,Total 0.3 mg/dL (0.3-1.0); Blood Urea Nitrogen 58 mg/dL (8-23); Calcium 8.6 mg/dL (8.6-10.3); Carbon Dioxide 22 mEq/L (23-29); Chloride 112 mEq/L (98-107); Creatine Kinase 216 Units/L (30-223); Globulin 2.9 g/dL (2.4-3.5); Glucose 117 mg/dL (70-105); Magnesium 2.5 mg/dL (1.6-2.6); Osmolality,Calculated 307 (280-300); Potassium 6.5 mEq/L (3.5-5.1); Sodium 140 mEq/L (136-145); Troponin I < 0.03 ng/mL (< 0.04); eGFR For African Americans 38 (> 60); eGFR For Non-African Americans 32 (> 60)
[2020-01-02 02:03] LABS: Hypochromasia Present (Not Present); Platelet Estimate Normal (Normal)
[2020-01-02] MEDS ORDERED: Calcium Gluconate 1gm/50mL 1 GM/50 ML BAG IVPB ONE (02:53)
[2020-01-02] MEDS ORDERED: Pantoprazole 40 MG VIAL IVP ONE (03:01)
[2020-01-02] MEDS ORDERED: 0.9 % Sodium Chloride 1,000 ML IVC ONE (03:01)
[2020-01-02] MEDS ORDERED: Insulin Human Regular 10 UNIT in 0.9 % Sodium Chloride 10 ML IV ONE (03:16)
[2020-01-02] MEDS ORDERED: Naloxone 0.4 MG/ML INJ IVP PRN (03:40)
[2020-01-02] MEDS ORDERED: Ondansetron 4 MG/2 ML VIAL IVP PRN (03:40)
[2020-01-02] MEDS ORDERED: D5% in Water 1,000 ML IVC PRN (03:49)
[2020-01-02] MEDS ORDERED: *HR* Dextrose 50 % in Water (Syg) 50 ML SYRINGE IVP PRN (03:49)
[2020-01-02] MEDS ORDERED: Dextrose Gel 15 GM/37.5 ML TUBE PO PRN ×2 (03:49)
[2020-01-02 05:06] LABS: Hematocrit 25.6 % (35.3-44.9); Hemoglobin 7.1 g/dL (11.5-15.4)
[2020-01-02] MEDS: D5% in 0.9% NACL 1,000 ML IVC SCH ×3 (05:09→15:08)
[2020-01-02 05:13] LABS: INR 5.8; Prothrombin Time 65.8 Seconds (9.4-12.1)
[2020-01-02 05:23] LABS: Calcium 8.4 mg/dL (8.6-10.3); Potassium 6.2 mEq/L (3.5-5.1)
[2020-01-02] MEDS: Insulin LISPRO 300 UNITS/3 ML VIAL SQ SCH ×4 (07:52→23:51)
[2020-01-02] MEDS: Anastrozole 1 MG TABLET PO SCH (08:05)
[2020-01-02] MEDS ORDERED: Metoprolol 100 MG TABLET PO SCH (09:45)
[2020-01-02 15:16] LABS: Hematocrit 25.8 % (35.3-44.9); Hemoglobin 7.2 g/dL (11.5-15.4)
[2020-01-02 15:31] LABS: Calcium 8.4 mg/dL (8.6-10.3)
[2020-01-02] MEDS ORDERED: D5% in 0.9% NACL 1,000 ML IVC SCH (15:49)
[2020-01-02] MEDS ORDERED: SODIUM CHLORIDE/NAHCO3/KCL/PEG 4,000 ML SOLN.RECON PO ONE (17:00)
[2020-01-02 17:12] LABS: ABG Base Excess -3 mEq/L (-2 to 3); ABG HCO3 25 mEq/L (21-27); ABG Oxygen Saturation 95 % (95-98); ABG PCO2 61 mmHg (35-45); ABG PH 7.23 pH Units (7.32-7.45); ABG PO2 89 mmHg (85-104); ABG TCO2 27 mEq/L (20-26)
[2020-01-02] MEDS: Pantoprazole 40 MG VIAL IVP SCH (17:23)
[2020-01-02] MEDS: Metoprolol 100 MG TABLET PO SCH (19:58)
[2020-01-02] MEDS: Nystatin POWDER 30 GM BOTTLE TP SCH (19:58)
[2020-01-02 20:12] LABS: ABG Base Excess -2 mEq/L (-2 to 3); ABG HCO3 26 mEq/L (21-27); ABG Oxygen Saturation 98 % (95-98); ABG PCO2 60 mmHg (35-45); ABG PH 7.24 pH Units (7.32-7.45); ABG PO2 115 mmHg (85-104); ABG TCO2 28 mEq/L (20-26); Blood Gas Pressure Support 7 cm H2O
[2020-01-02 23:08] LABS: Hematocrit 28.2 % (35.3-44.9); Hemoglobin 7.8 g/dL (11.5-15.4)
[2020-01-03 02:12] LABS: Basophils % 0.5 %; Monocytes % 11.1 %
[2020-01-03 02:13] LABS: Eosinophils # 0.1 K/mcL (0.0-0.6); Eosinophils % 1.4 %; Hematocrit 24.4 % (35.3-44.9); Hemoglobin 6.8 g/dL (11.5-15.4); Immature Granulocytes % 0.3 % (0-4); Lymphocytes # 0.8 K/mcL (0.6-4.6); Mean Corpuscular HGB Conc 27.9 g/dL (31.6-35.5); Mean Corpuscular Hemoglobin 26.9 pg (28.0-33.3); Mean Corpuscular Volume 96.4 fL (83.0-100.0); Monocytes # 0.6 K/mcL (0.0-1.3); Platelet Count 224 K/mcL (140-400); Red Blood Count 2.53 M/mcL (3.82-4.97); Red Cell Distribution Width 17.9 % (11.5-14.5); Segmented Neutrophils % 73.7 %; White Blood Count 5.8 K/mcL (4.3-11.1)
[2020-01-03 02:18] LABS: INR 1.6; Neutrophils # 4.3 K/mcL (1.6-8.9); Prothrombin Time 18.3 Seconds (9.4-12.1)
[2020-01-03 02:31] LABS: Anisocytosis 1+ (Not Present); Platelet Estimate Normal (Normal); Polychromasia 1+ (Not Present)
[2020-01-03 02:32] LABS: Calcium 8.3 mg/dL (8.6-10.3); Magnesium 2.4 mg/dL (1.6-2.6); Potassium 5.7 mEq/L (3.5-5.1)
[2020-01-03] MEDS: Pantoprazole 40 MG VIAL IVP SCH ×2 (05:06→17:02)
[2020-01-03] MEDS: Insulin LISPRO 300 UNITS/3 ML VIAL SQ SCH ×3 (05:39→17:16)
[2020-01-03 07:17] LABS: Hematocrit 25.5 % (35.3-44.9); Hemoglobin 7.2 g/dL (11.5-15.4)
[2020-01-03] MEDS: Nystatin POWDER 30 GM BOTTLE TP SCH (10:21)
[2020-01-03] MEDS: Anastrozole 1 MG TABLET PO SCH (10:21)
[2020-01-03] MEDS: Metoprolol 100 MG TABLET PO SCH ×3 (10:21→20:58)
[2020-01-03] MEDS ORDERED: 0.9 % Sodium Chloride 1,000 ML IVC SCH (13:00)
[2020-01-03] MEDS ORDERED: *HR* Metoprolol 5 MG/5 ML VIAL IVP PRN (15:27)
[2020-01-03 15:40] LABS: Hematocrit 26.8 % (35.3-44.9); Hemoglobin 7.4 g/dL (11.5-15.4)
[2020-01-03] MEDS ORDERED: 0.9 % Sodium Chloride 500 ML IV ONE (16:54)
[2020-01-03] MEDS: 0.9 % Sodium Chloride 1,000 ML IVC SCH (17:18)
[2020-01-03 17:35] LABS: Hematocrit 27.3 % (35.3-44.9); Hemoglobin 7.6 g/dL (11.5-15.4)
[2020-01-03 22:52] LABS: Hematocrit 26.4 % (35.3-44.9); Hemoglobin 7.3 g/dL (11.5-15.4)
[2020-01-04] MEDS: 0.9 % Sodium Chloride 1,000 ML IVC SCH ×3 (01:08→19:50)
[2020-01-04] MEDS: Nystatin POWDER 30 GM BOTTLE TP SCH ×2 (01:09→10:31)
[2020-01-04] MEDS: Insulin LISPRO 300 UNITS/3 ML VIAL SQ SCH ×4 (03:40→18:12)
[2020-01-04 04:29] LABS: Hematocrit 25.4 % (35.3-44.9); Hemoglobin 7.1 g/dL (11.5-15.4)
[2020-01-04 04:30] LABS: Mean Corpuscular Hemoglobin 27.2 pg (28.0-33.3); Mean Corpuscular Volume 97.3 fL (83.0-100.0); Mean Platelet Volume 9.9 fL (9.4-12.4); Platelet Count 230 K/mcL (140-400); Red Blood Count 2.61 M/mcL (3.82-4.97); Red Cell Distribution Width 17.5 % (11.5-14.5); White Blood Count 5.9 K/mcL (4.3-11.1)
[2020-01-04 04:48] LABS: Calcium 8.5 mg/dL (8.6-10.3)
[2020-01-04] MEDS: Pantoprazole 40 MG VIAL IVP SCH ×2 (05:43→17:08)
[2020-01-04] MEDS ORDERED: Furosemide 40 MG/4 ML VIAL IVP ONE (08:02)
[2020-01-04] MEDS ORDERED: 0.9 % Sodium Chloride 250 ML ONE ×2 (08:07→11:27)
[2020-01-04] MEDS ORDERED: 0.9 % Sodium Chloride 1,000 ML IVC ONE (08:22)
[2020-01-04] MEDS: Metoprolol 100 MG TABLET PO SCH ×2 (08:23→19:37)
[2020-01-04] MEDS: Anastrozole 1 MG TABLET PO SCH (08:23)
[2020-01-04 13:35] LABS: Bilirubin,Urine Negative (Negative); Blood,Urine Large (Negative); Color,Urine Yellow (Yellow); Glucose,Urine (UA) Normal (Normal); Ketones,Urine Negative (Negative); Leukocyte Esterase,Urine Trace (Negative); Nitrite,Urine Negative (Negative); PH,Urine 5.5 pH Units (5.0-8.0); Protein,Urine 30 mg/dL (Neg-Trace); Specific Gravity,Urine 1.016 (1.010-1.025); Urobilinogen,Urine Normal (Normal)
[2020-01-04 13:37] LABS: Sodium, Urine 31.1 mEq/L
[2020-01-04 13:38] LABS: Bacteria,Urine Moderate per hpf (None-Few); Hyaline Casts,Urine None Seen per lpf (None-Few); RBC,Urine 15-30 per hpf (0-3); Squamous Epithelial Cell,Urine Moderate per lpf (None-Few)
[2020-01-04 13:40] LABS: Clarity,Urine Slightly Hazy (Clear)
[2020-01-04 16:04] LABS: Hematocrit 29.1 % (35.3-44.9); Hemoglobin 8.2 g/dL (11.5-15.4)
[2020-01-04 16:20] LABS: Calcium 8.4 mg/dL (8.6-10.3); Potassium 5.9 mEq/L (3.5-5.1)
[2020-01-04] MEDS: SODIUM ZIRCONIUM CYCLOSILICATE 5 GM POWD.PACK PO SCH (17:07)
[2020-01-04 18:31] LABS: Hematocrit 29.1 % (35.3-44.9); Hemoglobin 8.3 g/dL (11.5-15.4)
[2020-01-04] MEDS: Pantoprazole 40 MG in 0.9 % Sodium Chloride Mini Bag 100 ML IVC SCH (20:31)
[2020-01-04 22:34] LABS: ABG Base Excess -5 mEq/L (-2 to 3); ABG HCO3 23 mEq/L (21-27); ABG Oxygen Saturation 84 % (95-98); ABG PCO2 60 mmHg (35-45); ABG PO2 60 mmHg (85-104); ABG TCO2 25 mEq/L (20-26)
[2020-01-04 22:54] LABS: Hemoglobin 8.1 g/dL (11.5-15.4)
[2020-01-04 22:56] LABS: Hematocrit 28.4 % (35.3-44.9)
[2020-01-05] MEDS ORDERED: Acetaminophen IV 1,000 MG/100 ML INFUS..BTL IVPB ONE (00:28)
[2020-01-05 01:12] LABS: Mean Corpuscular HGB Conc 28.4 g/dL (31.6-35.5)
[2020-01-05 01:14] LABS: Hematocrit 27.5 % (35.3-44.9); Hemoglobin 7.8 g/dL (11.5-15.4); INR 1.3; Mean Corpuscular Hemoglobin 27.7 pg (28.0-33.3); Mean Corpuscular Volume 97.5 fL (83.0-100.0); Mean Platelet Volume 9.8 fL (9.4-12.4); Platelet Count 200 K/mcL (140-400); Prothrombin Time 15.2 Seconds (9.4-12.1); Red Blood Count 2.82 M/mcL (3.82-4.97); Red Cell Distribution Width 17.6 % (11.5-14.5); White Blood Count 5.3 K/mcL (4.3-11.1)
[2020-01-05 01:17] LABS: Activated Partial Thrombo Time 29.5 Seconds (26.0-36.0)
[2020-01-05 01:29] LABS: Calcium 8.5 mg/dL (8.6-10.3); Potassium 5.2 mEq/L (3.5-5.1)
[2020-01-05] MEDS: Insulin LISPRO 300 UNITS/3 ML VIAL SQ SCH ×5 (01:33→23:48)
[2020-01-05] MEDS: Nystatin POWDER 30 GM BOTTLE TP SCH ×4 (01:39→20:14)
[2020-01-05] MEDS: Pantoprazole 40 MG in 0.9 % Sodium Chloride Mini Bag 100 ML IVC SCH ×5 (01:39→19:57)
[2020-01-05] MEDS ORDERED: Albumin 25% 25gram/100mL 25 GM/100 ML IV.SOLN IVPB ONE (03:48)
[2020-01-05 05:01] LABS: Hematocrit 26.7 % (35.3-44.9); Hemoglobin 7.5 g/dL (11.5-15.4)
[2020-01-05] MEDS ORDERED: Azithromycin 500 MG in 0.9 % Sodium Chloride 250 ML IVPB SCH ×2 (08:00→08:42)
[2020-01-05] MEDS ORDERED: cefTRIAXone 2,000 MG in Water for inj. (sterile) 20 ML IVP SCH ×2 (08:00→08:42)
[2020-01-05] MEDS ORDERED: Furosemide 20 MG/2 ML VIAL IVP ONE (08:17)
[2020-01-05] MEDS: Metoprolol 100 MG TABLET PO SCH ×2 (08:36→19:56)
[2020-01-05] MEDS: Anastrozole 1 MG TABLET PO SCH (08:46)
[2020-01-05] MEDS: SODIUM ZIRCONIUM CYCLOSILICATE 5 GM POWD.PACK PO SCH (08:46)
[2020-01-05] MEDS: 0.9 % Sodium Chloride 1,000 ML IVC SCH (08:52)
[2020-01-05] MEDS: Cefepime HCl 2,000 MG in 0.9 % Sodium Chloride Mini Bag 100 ML IVPB SCH ×2 (09:40→19:57)
[2020-01-05] MEDS ORDERED: *HR* Metoprolol 5 MG/5 ML VIAL IVP ONE (09:43)
[2020-01-05 13:39] LABS: Hematocrit 29.4 % (35.3-44.9); Hemoglobin 8.1 g/dL (11.5-15.4)
[2020-01-05] MEDS ORDERED: Furosemide 40 MG/4 ML VIAL IVP ONE ×2 (14:30)
[2020-01-05 21:08] LABS: Hematocrit 28.8 % (35.3-44.9)
[2020-01-06] MEDS: Pantoprazole 40 MG in 0.9 % Sodium Chloride Mini Bag 100 ML IVC SCH ×5 (01:28→20:02)
[2020-01-06 03:42] LABS: Calcium 8.8 mg/dL (8.6-10.3); Potassium 4.9 mEq/L (3.5-5.1)
[2020-01-06 03:53] LABS: Hematocrit 29.8 % (35.3-44.9); Hemoglobin 8.3 g/dL (11.5-15.4); Mean Corpuscular HGB Conc 27.9 g/dL (31.6-35.5); Mean Corpuscular Hemoglobin 27.3 pg (28.0-33.3); Platelet Count 226 K/mcL (140-400); Red Blood Count 3.04 M/mcL (3.82-4.97); Red Cell Distribution Width 17.3 % (11.5-14.5); White Blood Count 4.7 K/mcL (4.3-11.1)
[2020-01-06 06:09] LABS: ABG Base Excess -3 mEq/L (-2 to 3); ABG HCO3 25 mEq/L (21-27); ABG Oxygen Saturation 98 % (95-98); ABG PCO2 59 mmHg (35-45); ABG PH 7.24 pH Units (7.32-7.45); ABG PO2 120 mmHg (85-104); ABG TCO2 27 mEq/L (20-26); Blood Gas Modality BiLevel
[2020-01-06] MEDS: Insulin LISPRO 300 UNITS/3 ML VIAL SQ SCH ×3 (06:58→17:40)
[2020-01-06] MEDS ORDERED: Furosemide 40 MG/4 ML VIAL IVP ONE ×2 (07:43→17:00)
[2020-01-06] MEDS: Anastrozole 1 MG TABLET PO SCH (09:12)
[2020-01-06] MEDS: Metoprolol 100 MG TABLET PO SCH ×2 (09:12→20:02)
[2020-01-06] MEDS: SODIUM ZIRCONIUM CYCLOSILICATE 5 GM POWD.PACK PO SCH (09:12)
[2020-01-06] MEDS: Cefepime HCl 2,000 MG in 0.9 % Sodium Chloride Mini Bag 100 ML IVPB SCH ×2 (09:12→20:01)
[2020-01-06] MEDS: Nystatin POWDER 30 GM BOTTLE TP SCH ×2 (09:14→20:03)
[2020-01-06] MEDS ORDERED: *HR* Heparin 5,000 UNIT/ML VIAL IVP PRN ×2 (09:30)
[2020-01-06] MEDS ORDERED: Heparin 25,000 UNIT/250 ML D5W 25,000 UNIT/250 ML IV.SOLN IVC SCH (09:30)
[2020-01-06] MEDS ORDERED: *HR* Heparin 5,000 UNIT/ML VIAL IVP ONE (09:30)
[2020-01-06 09:58] LABS: Heparin anti-factor XA UFH < 0.04 IU/mL (0.30-0.70)
[2020-01-06 10:07] LABS: INR 1.5; Prothrombin Time 16.5 Seconds (9.4-12.1)
[2020-01-06 13:20] LABS: Hematocrit 30.3 % (35.3-44.9); Hemoglobin 8.6 g/dL (11.5-15.4)
[2020-01-06 17:23] LABS: Hematocrit 28.9 % (35.3-44.9); Hemoglobin 8.2 g/dL (11.5-15.4)
[2020-01-06 20:34] LABS: Hematocrit 29.9 % (35.3-44.9); Hemoglobin 8.5 g/dL (11.5-15.4)
[2020-01-06] MEDS: *HR* LORazepam 1 MG TABLET PO PRN (22:14)
[2020-01-07] LABS: ABG Base Excess 0 mEq/L (-2 to 3); ABG HCO3 28 mEq/L (21-27); ABG Oxygen Saturation 97 % (95-98); ABG PCO2 59 mmHg (35-45); ABG PH 7.28 pH Units (7.32-7.45); ABG PO2 101 mmHg (85-104); ABG TCO2 29 mEq/L (20-26)
[2020-01-07] MEDS: Insulin LISPRO 300 UNITS/3 ML VIAL SQ SCH ×4 (00:12→17:32)
[2020-01-07] MEDS: Pantoprazole 40 MG in 0.9 % Sodium Chloride Mini Bag 100 ML IVC SCH ×5 (01:52→23:50)
[2020-01-07] MEDS ORDERED: *HR* LORazepam 2 MG/ML VIAL IVP ONE (02:10)
[2020-01-07 04:38] LABS: Hemoglobin 7.9 g/dL (11.5-15.4)
[2020-01-07 04:39] LABS: Hematocrit 28.8 % (35.3-44.9); Mean Corpuscular HGB Conc 27.4 g/dL (31.6-35.5); Mean Corpuscular Hemoglobin 26.9 pg (28.0-33.3); Mean Platelet Volume 9.9 fL (9.4-12.4); Platelet Count 207 K/mcL (140-400); Red Blood Count 2.94 M/mcL (3.82-4.97); White Blood Count 4.1 K/mcL (4.3-11.1)
[2020-01-07 04:57] LABS: Calcium 8.7 mg/dL (8.6-10.3); Potassium 4.1 mEq/L (3.5-5.1)
[2020-01-07] MEDS ORDERED: Furosemide 40 MG/4 ML VIAL IVP ONE ×2 (07:28→17:00)
[2020-01-07] MEDS: Anastrozole 1 MG TABLET PO SCH (07:53)
[2020-01-07] MEDS: Metoprolol 100 MG TABLET PO SCH ×2 (07:53→20:53)
[2020-01-07] MEDS: Cefepime HCl 2,000 MG in 0.9 % Sodium Chloride Mini Bag 100 ML IVPB SCH (07:53)
[2020-01-07] MEDS: SODIUM ZIRCONIUM CYCLOSILICATE 5 GM POWD.PACK PO SCH (07:59)
[2020-01-07] MEDS ORDERED: Lidocaine -MPF 2% 2 ML VIAL ONE (09:22)
[2020-01-07] MEDS ORDERED: *HR* Propofol 200 MG/20 ML VIAL IVP ONE (09:25)
[2020-01-07] MEDS ORDERED: *HR* PHENYLEPHRINE 1,000 MCG/10 ML SYRINGE IVP ONE (09:50)
[2020-01-07] MEDS ORDERED: EPHEDrine 50 MG/ML VIAL ONE (10:04)
[2020-01-07] MEDS ORDERED: Ondansetron 4 MG/2 ML VIAL ONE (10:08)
[2020-01-07] MEDS: Nystatin POWDER 30 GM BOTTLE TP SCH ×2 (14:38→23:44)
[2020-01-07 14:44] LABS: Hematocrit 29.9 % (35.3-44.9); Hemoglobin 8.2 g/dL (11.5-15.4)
[2020-01-07 20:05] LABS: Hemoglobin 8.2 g/dL (11.5-15.4)
[2020-01-07] MEDS: *HR* LORazepam 1 MG TABLET PO PRN (21:06)
[2020-01-08 05:01] LABS: Red Cell Distribution Width 17.1 % (11.5-14.5)
[2020-01-08 05:02] LABS: Hemoglobin 8.3 g/dL (11.5-15.4); Mean Corpuscular HGB Conc 27.7 g/dL (31.6-35.5); Mean Corpuscular Hemoglobin 26.9 pg (28.0-33.3); Mean Corpuscular Volume 97.4 fL (83.0-100.0); Mean Platelet Volume 10.2 fL (9.4-12.4); Platelet Count 190 K/mcL (140-400); Red Blood Count 3.08 M/mcL (3.82-4.97); White Blood Count 3.7 K/mcL (4.3-11.1)
[2020-01-08] MEDS ORDERED: *HR* LORazepam 2 MG/ML VIAL IVP ONE (05:04)
[2020-01-08 05:15] LABS: Calcium 8.8 mg/dL (8.6-10.3)
[2020-01-08] MEDS: Pantoprazole 40 MG in 0.9 % Sodium Chloride Mini Bag 100 ML IVC SCH (05:23)
[2020-01-08] MEDS: Insulin LISPRO 300 UNITS/3 ML VIAL SQ SCH ×4 (09:10→20:21)
[2020-01-08] MEDS: Anastrozole 1 MG TABLET PO SCH (09:10)
[2020-01-08] MEDS: Metoprolol 100 MG TABLET PO SCH (09:11)
[2020-01-08] MEDS: Nystatin POWDER 30 GM BOTTLE TP SCH ×2 (09:13→20:21)
[2020-01-08] MEDS ORDERED: Furosemide 40 MG TABLET PO SCH (10:15)
[2020-01-08] MEDS: Acetaminophen 325 MG TABLET PO PRN (11:49)
[2020-01-08] MEDS: Furosemide 40 MG/4 ML VIAL IVP SCH (17:05)
[2020-01-08] MEDS: Pantoprazole 40 MG VIAL IVP SCH (17:05)
[2020-01-08] MEDS: *HR* LORazepam 1 MG TABLET PO PRN (20:20)
[2020-01-09] MEDS: Pantoprazole 40 MG VIAL IVP SCH ×2 (05:30→17:14)
[2020-01-09 06:07] LABS: Hematocrit 29.1 % (35.3-44.9); Mean Corpuscular HGB Conc 28.5 g/dL (31.6-35.5); Mean Corpuscular Hemoglobin 27.7 pg (28.0-33.3); Mean Platelet Volume 10.4 fL (9.4-12.4); Platelet Count 178 K/mcL (140-400); Red Cell Distribution Width 16.8 % (11.5-14.5); White Blood Count 4.4 K/mcL (4.3-11.1)
[2020-01-09 06:09] LABS: Hemoglobin 8.3 g/dL (11.5-15.4)
[2020-01-09 06:14] LABS: Calcium 8.8 mg/dL (8.6-10.3); Potassium 3.7 mEq/L (3.5-5.1)
[2020-01-09] MEDS: Insulin LISPRO 300 UNITS/3 ML VIAL SQ SCH ×4 (08:17→20:12)
[2020-01-09] MEDS: Anastrozole 1 MG TABLET PO SCH (08:18)
[2020-01-09] MEDS: Furosemide 40 MG/4 ML VIAL IVP SCH ×2 (08:18→20:05)
[2020-01-09] MEDS: Nystatin POWDER 30 GM BOTTLE TP SCH ×2 (08:38→20:05)
[2020-01-09] MEDS: *HR* LORazepam 1 MG TABLET PO PRN (20:23)
[2020-01-10] MEDS ORDERED: *HR* LORazepam 2 MG/ML VIAL IVP ONE (04:13)
[2020-01-10] MEDS: Pantoprazole 40 MG VIAL IVP SCH ×2 (05:06→17:05)
[2020-01-10 06:58] LABS: Mean Platelet Volume 10.4 fL (9.4-12.4)
[2020-01-10 06:59] LABS: Hematocrit 28.4 % (35.3-44.9); Hemoglobin 8.1 g/dL (11.5-15.4); Mean Corpuscular HGB Conc 28.5 g/dL (31.6-35.5); Mean Corpuscular Hemoglobin 27.5 pg (28.0-33.3); Mean Corpuscular Volume 96.3 fL (83.0-100.0); Platelet Count 153 K/mcL (140-400); Red Blood Count 2.95 M/mcL (3.82-4.97); Red Cell Distribution Width 16.3 % (11.5-14.5); White Blood Count 4.4 K/mcL (4.3-11.1)
[2020-01-10 07:19] LABS: BUN/Creatinine Ratio 29 (6-26); Blood Urea Nitrogen 27 mg/dL (8-23); Calcium 8.8 mg/dL (8.6-10.3); Carbon Dioxide 40 mEq/L (23-29); Chloride 100 mEq/L (98-107); Glucose 117 mg/dL (70-105); Osmolality,Calculated 306 (280-300); Potassium 3.3 mEq/L (3.5-5.1); Sodium 145 mEq/L (136-145); eGFR For African Americans > 60 (> 60); eGFR For Non-African Americans 58 (> 60)
[2020-01-10] MEDS: Acetaminophen 325 MG TABLET PO PRN (09:22)
[2020-01-10] MEDS: Anastrozole 1 MG TABLET PO SCH (09:23)
[2020-01-10] MEDS ORDERED: Potassium Chloride Elixir 20 MEQ/15 ML UDC PO SCH (09:45)
[2020-01-10] MEDS: Insulin LISPRO 300 UNITS/3 ML VIAL SQ SCH ×4 (10:45→21:50)
[2020-01-10] MEDS: Furosemide 40 MG/4 ML VIAL IVP SCH ×2 (11:06→21:57)
[2020-01-10] MEDS: Amoxicillin/Clavulanate 500 MG TABLET PO SCH ×2 (11:07→17:05)
[2020-01-10] MEDS ORDERED: Furosemide 40 MG/4 ML VIAL IVP ONE (12:20)
[2020-01-10] MEDS: Nystatin POWDER 30 GM BOTTLE TP SCH ×2 (12:26→21:58)
[2020-01-10] MEDS ORDERED: hydrOXYzine pamoate 25 MG CAPSULE PO ONE (14:20)
[2020-01-10] MEDS: *HR* LORazepam 1 MG TABLET PO PRN (21:56)
[2020-01-11 02:45] LABS: Hematocrit 30.3 % (35.3-44.9); Hemoglobin 8.6 g/dL (11.5-15.4)
[2020-01-11 03:06] LABS: BUN/Creatinine Ratio 25 (6-26); Blood Urea Nitrogen 25 mg/dL (8-23); Calcium 8.7 mg/dL (8.6-10.3); Carbon Dioxide 45 mEq/L (23-29); Chloride 97 mEq/L (98-107); Glucose 124 mg/dL (70-105); Osmolality,Calculated 308 (280-300); Potassium 3.5 mEq/L (3.5-5.1); Sodium 146 mEq/L (136-145); eGFR For African Americans > 60 (> 60); eGFR For Non-African Americans 54 (> 60)
[2020-01-11] MEDS: Pantoprazole 40 MG VIAL IVP SCH ×2 (05:36→17:30)
[2020-01-11] MEDS: Amoxicillin/Clavulanate 500 MG TABLET PO SCH ×3 (08:10→17:34)
[2020-01-11] MEDS: Insulin LISPRO 300 UNITS/3 ML VIAL SQ SCH ×4 (08:10→20:33)
[2020-01-11] MEDS: Anastrozole 1 MG TABLET PO SCH (08:10)
[2020-01-11] MEDS: Nystatin POWDER 30 GM BOTTLE TP SCH ×2 (08:10→20:47)
[2020-01-11] MEDS ORDERED: Furosemide 40 MG/4 ML VIAL IVP SCH (09:00)
[2020-01-11 10:55] LABS: ABG Base Excess 18 mEq/L (-2 to 3); ABG HCO3 45 mEq/L (21-27); ABG Oxygen Saturation 96 % (95-98); ABG PCO2 70 mmHg (35-45); ABG PH 7.42 pH Units (7.32-7.45); ABG PO2 86 mmHg (85-104); ABG TCO2 47 mEq/L (20-26)
[2020-01-11] MEDS ORDERED: polyethylene glycoL 3350 17 GM POWD.PACK PO PRN (12:00)
[2020-01-11] MEDS ORDERED: polyethylene glycoL 3350 17 GM POWD.PACK PO ONE (12:01)
[2020-01-11] MEDS: Spironolactone 25 MG TABLET PO SCH (13:20)
[2020-01-11] MEDS: *HR* LORazepam 1 MG TABLET PO PRN (20:47)
[2020-01-12 02:59] LABS: Mean Platelet Volume 10.7 fL (9.4-12.4)
[2020-01-12 03:00] LABS: Basophils # 0.1 K/mcL (0.0-0.2); Eosinophils # 0.2 K/mcL (0.0-0.6); Eosinophils % 4.1 %; Hematocrit 32.4 % (35.3-44.9); Hemoglobin 9.2 g/dL (11.5-15.4); Immature Granulocytes % 0.5 % (0-4); Lymphocytes # 0.9 K/mcL (0.6-4.6); Lymphocytes % 14.7 %; Mean Corpuscular HGB Conc 28.4 g/dL (31.6-35.5); Mean Corpuscular Hemoglobin 27.7 pg (28.0-33.3); Mean Corpuscular Volume 97.6 fL (83.0-100.0); Monocytes # 0.6 K/mcL (0.0-1.3); Monocytes % 10.3 %; Neutrophils # 4.1 K/mcL (1.6-8.9); Platelet Count 166 K/mcL (140-400); Red Blood Count 3.32 M/mcL (3.82-4.97); Red Cell Distribution Width 16.5 % (11.5-14.5); Segmented Neutrophils % 69.4 %; White Blood Count 5.9 K/mcL (4.3-11.1)
[2020-01-12 03:04] LABS: INR 1.2; Prothrombin Time 14.1 Seconds (9.4-12.1)
[2020-01-12 03:15] LABS: Anisocytosis 1+ (Not Present); Hypochromasia Present (Not Present)
[2020-01-12 03:20] LABS: Microcytosis Present (Not Present); Platelet Estimate Normal (Normal)
[2020-01-12 03:41] LABS: BUN/Creatinine Ratio 25 (6-26); Blood Urea Nitrogen 22 mg/dL (8-23); Calcium 8.9 mg/dL (8.6-10.3); Carbon Dioxide 41 mEq/L (23-29); Chloride 100 mEq/L (98-107); Glucose 122 mg/dL (70-105); Osmolality,Calculated 303 (280-300); Potassium 4.1 mEq/L (3.5-5.1); Sodium 144 mEq/L (136-145); eGFR For African Americans > 60 (> 60); eGFR For Non-African Americans > 60 (> 60)
[2020-01-12] MEDS: Pantoprazole 40 MG VIAL IVP SCH ×2 (05:34→17:24)
[2020-01-12] MEDS: Spironolactone 25 MG TABLET PO SCH (09:53)
[2020-01-12] MEDS: Anastrozole 1 MG TABLET PO SCH (09:53)
[2020-01-12] MEDS: Insulin LISPRO 300 UNITS/3 ML VIAL SQ SCH ×5 (09:55→20:17)
[2020-01-12 11:24] LABS: Appearance of Pleural Fl Hazy (Clear)
[2020-01-12 11:49] LABS: Glucose,Pleural Fluid 135 mg/dL (No Ref Range); LDH,Pleural Fluid 79 Units/L (No Ref Range); Total Protein,Pleural Fluid < 3.0 g/dL
[2020-01-12 12:00] LABS: Basophils,Pleural Fluid 0 %
[2020-01-12] MEDS: Nystatin POWDER 30 GM BOTTLE TP SCH ×2 (13:00→21:30)
[2020-01-12] MEDS: *HR* LORazepam 1 MG TABLET PO PRN (20:18)
[2020-01-13 05:10] LABS: BUN/Creatinine Ratio 25 (6-26); Blood Urea Nitrogen 23 mg/dL (8-23); Carbon Dioxide 38 mEq/L (23-29); Chloride 103 mEq/L (98-107); Glucose 131 mg/dL (70-105); Osmolality,Calculated 305 (280-300); Potassium 3.8 mEq/L (3.5-5.1); Sodium 145 mEq/L (136-145); eGFR For African Americans > 60 (> 60); eGFR For Non-African Americans 59 (> 60)
[2020-01-13] MEDS: Pantoprazole 40 MG VIAL IVP SCH (05:52)
[2020-01-13] MEDS: Insulin LISPRO 300 UNITS/3 ML VIAL SQ SCH ×2 (07:31→11:37)
[2020-01-13] MEDS: Spironolactone 25 MG TABLET PO SCH (08:42)
[2020-01-13] MEDS: Anastrozole 1 MG TABLET PO SCH (08:42)
[2020-01-13] MEDS: Nystatin POWDER 30 GM BOTTLE TP SCH (08:43)
[2020-01-13 11:01] VITALS: BP 130/76
[2020-01-14 04:52] LABS: Fluid Source for Albumin PLEURAL FLUID
== END 2020-01-13 13:30 | DRG 377 ==
LOC: 2ANU 00:09 → EMEROOARM 00:09 → SUATTDRO 05:05 → 2ANU 06:11 → SUATTDRO 01-03 12:50
PROVIDERS: ADMIT Family Medicine; ATTEND Internal Medicine

== ENCOUNTER 2020-05-07 17:09 | Inpatient (IN) ==
[2020-05-07 18:00] LABS: Basophils % 0.5 %; Hematocrit 35.8 % (35.3-44.9); Immature Granulocytes % 0.3 % (0-4); Lymphocytes % 13.2 %; Mean Platelet Volume 10.2 fL (9.4-12.4); Red Cell Distribution Width 15.7 % (11.5-14.5)
[2020-05-07 18:02] LABS: Eosinophils # 0.1 K/mcL (0.0-0.6); Eosinophils % 1.9 %; Hemoglobin 10.4 g/dL (11.5-15.4); Lymphocytes # 0.8 K/mcL (0.6-4.6); Mean Corpuscular HGB Conc 29.1 g/dL (31.6-35.5); Mean Corpuscular Hemoglobin 27.1 pg (28.0-33.3); Mean Corpuscular Volume 93.2 fL (83.0-100.0); Monocytes # 0.5 K/mcL (0.0-1.3); Monocytes % 8.4 %; Neutrophils # 4.3 K/mcL (1.6-8.9); Platelet Count 206 K/mcL (140-400); Red Blood Count 3.84 M/mcL (3.82-4.97); Segmented Neutrophils % 75.7 %; White Blood Count 5.7 K/mcL (4.3-11.1)
[2020-05-07 18:14] LABS: Alanine Aminotransferase 8 Units/L (7-52); Albumin 3.5 g/dL (3.5-5.7); Albumin/Globulin Ratio 1.1 (1.1-2.2); Alkaline Phosphatase 60 Units/L (34-104); Aspartate Amino Transferase 11 Units/L (13-39); BUN/Creatinine Ratio 26 (6-26); Bilirubin,Direct 0.1 mg/dL (0.0-0.2); Bilirubin,Indirect 0.4 mg/dL (0.0-1.0); Bilirubin,Total 0.5 mg/dL (0.3-1.0); Blood Urea Nitrogen 31 mg/dL (8-23); Calcium 9.1 mg/dL (8.6-10.3); Carbon Dioxide 25 mEq/L (23-29); Chloride 109 mEq/L (98-107); Globulin 3.3 g/dL (2.4-3.5); Glucose 111 mg/dL (70-105); Osmolality,Calculated 299 (280-300); Potassium 4.9 mEq/L (3.5-5.1); Sodium 141 mEq/L (136-145); Total Protein 6.8 g/dL (6.4-8.9); Troponin I < 0.03 ng/mL (< 0.04); eGFR For African Americans 53 (> 60); eGFR For Non-African Americans 44 (> 60)
[2020-05-07 18:27] LABS: Platelet Estimate Normal (Normal)
[2020-05-07] MEDS ORDERED: Vancomycin 2,000 MG/520 ML IV.SOLN IVPB ONE (18:29)
[2020-05-07] MEDS ORDERED: Furosemide 40 MG/4 ML VIAL IVP ONE (18:29)
[2020-05-07] MEDS ORDERED: Piperacillin/Tazobactam 3.375 GM in 0.9 % Sodium Chloride Mini Bag 100 ML IVPB ONE (18:29)
[2020-05-07 19:49] LABS: Bilirubin,Urine Negative (Negative); Blood,Urine Negative (Negative); Clarity,Urine Clear (Clear); Color,Urine Light-Yellow (Yellow); Glucose,Urine (UA) Normal (Normal); Ketones,Urine Negative (Negative); Leukocyte Esterase,Urine Negative (Negative); Nitrite,Urine Negative (Negative); PH,Urine 5.5 pH Units (5.0-8.0); Protein,Urine Trace mg/dL (Neg-Trace); Specific Gravity,Urine 1.021 (1.010-1.025); Urobilinogen,Urine Normal (Normal)
[2020-05-07] MEDS ORDERED: Naloxone 0.4 MG/ML INJ IVP PRN (23:55)
[2020-05-07] MEDS ORDERED: *HR* Dextrose 50 % in Water (Vial) 50 ML VIAL IVP PRN (23:55)
[2020-05-07] MEDS ORDERED: D5% in Water 1,000 ML IVC PRN (23:55)
[2020-05-07] MEDS ORDERED: Dextrose Gel 15 GM/37.5 ML TUBE PO PRN ×2 (23:55)
[2020-05-08] MEDS: Insulin LISPRO 300 UNITS/3 ML VIAL SQ SCH ×5 (01:06→20:55)
[2020-05-08 01:30] LABS: Basophils # 0.1 K/mcL (0.0-0.2); Basophils % 0.7 %; Eosinophils # 0.1 K/mcL (0.0-0.6); Eosinophils % 1.6 %; Hemoglobin 10.2 g/dL (11.5-15.4); Immature Granulocytes % 0.3 % (0-4); Lymphocytes # 0.7 K/mcL (0.6-4.6); Lymphocytes % 10.5 %; Mean Corpuscular HGB Conc 29.1 g/dL (31.6-35.5); Mean Corpuscular Hemoglobin 27.3 pg (28.0-33.3); Mean Corpuscular Volume 93.8 fL (83.0-100.0); Mean Platelet Volume 10.6 fL (9.4-12.4); Monocytes # 0.7 K/mcL (0.0-1.3); Monocytes % 9.5 %; Neutrophils # 5.5 K/mcL (1.6-8.9); Platelet Count 214 K/mcL (140-400); Red Blood Count 3.73 M/mcL (3.82-4.97); Red Cell Distribution Width 15.5 % (11.5-14.5); Segmented Neutrophils % 77.4 %
[2020-05-08 01:32] LABS: INR 1.2; Prothrombin Time 13.7 Seconds (9.4-12.1)
[2020-05-08 01:35] LABS: Activated Partial Thrombo Time 30.8 Seconds (26.0-36.0)
[2020-05-08 01:46] LABS: Magnesium 1.7 mg/dL (1.6-2.6); Phosphorous 3.7 mg/dL (2.7-4.5); Potassium 4.6 mEq/L (3.5-5.1)
[2020-05-08] MEDS ORDERED: Acetaminophen 325 MG TABLET PO PRN (03:03)
[2020-05-08] MEDS ORDERED: *HR* Promethazine 25 MG/ML VIAL IVP PRN (03:03)
[2020-05-08] MEDS: *HR* Heparin 5,000 UNIT/ML VIAL SQ SCH ×3 (06:19→20:59)
[2020-05-08] MEDS: Vancomycin 1,500 MG/265 ML IV.SOLN IVPB SCH (07:57)
[2020-05-08] MEDS: Piperacillin/Tazobactam 3.375 GM in 0.9 % Sodium Chloride Mini Bag 100 ML IVPB SCH ×3 (07:58→23:50)
[2020-05-08] MEDS ORDERED: Furosemide 40 MG/4 ML VIAL IVP SCH ×2 (09:00→17:15)
[2020-05-08] MEDS: Metoprolol 100 MG TABLET PO SCH ×2 (10:14→20:59)
[2020-05-08] MEDS: Gabapentin 300 MG CAPSULE PO SCH ×2 (14:58→20:59)
[2020-05-08] MEDS: Anastrozole 1 MG TABLET PO SCH (14:58)
[2020-05-08] MEDS: Aspirin Enteric Coated 81 MG Tablet PO SCH (14:58)
[2020-05-08] MEDS: *HR* LORazepam 1 MG TABLET PO PRN (20:59)
[2020-05-09 04:17] LABS: Hematocrit 32.5 % (35.3-44.9); Hemoglobin 9.5 g/dL (11.5-15.4); Mean Corpuscular HGB Conc 29.2 g/dL (31.6-35.5); Mean Corpuscular Hemoglobin 26.8 pg (28.0-33.3); Mean Corpuscular Volume 91.5 fL (83.0-100.0); Mean Platelet Volume 10.2 fL (9.4-12.4); Platelet Count 185 K/mcL (140-400); Red Blood Count 3.55 M/mcL (3.82-4.97); Red Cell Distribution Width 15.5 % (11.5-14.5); White Blood Count 4.9 K/mcL (4.3-11.1)
[2020-05-09 04:35] LABS: Calcium 8.6 mg/dL (8.6-10.3); Magnesium 1.5 mg/dL (1.6-2.6); Potassium 4.3 mEq/L (3.5-5.1)
[2020-05-09] MEDS: *HR* Heparin 5,000 UNIT/ML VIAL SQ SCH ×3 (05:52→21:56)
[2020-05-09] MEDS: Metoprolol 100 MG TABLET PO SCH ×2 (07:57→21:55)
[2020-05-09] MEDS: Gabapentin 300 MG CAPSULE PO SCH ×2 (07:57→21:55)
[2020-05-09] MEDS: Aspirin Enteric Coated 81 MG Tablet PO SCH (07:57)
[2020-05-09] MEDS: Anastrozole 1 MG TABLET PO SCH (07:57)
[2020-05-09] MEDS: Piperacillin/Tazobactam 3.375 GM in 0.9 % Sodium Chloride Mini Bag 100 ML IVPB SCH ×2 (07:58→16:51)
[2020-05-09] MEDS: Insulin LISPRO 300 UNITS/3 ML VIAL SQ SCH ×4 (08:00→21:55)
[2020-05-09] MEDS ORDERED: DAPTOmycin 550 MG in 0.9 % Sodium Chloride 100 ML IVPB SCH (10:00)
[2020-05-09] MEDS ORDERED: Vancomycin 1,250 MG/262.5 ML IV.SOLN IVPB SCH (10:00)
[2020-05-09] MEDS: Vancomycin 1,500 MG/265 ML IV.SOLN IVPB SCH (10:20)
[2020-05-09] MEDS: Furosemide 40 MG/4 ML VIAL IVP SCH (14:48)
[2020-05-09] MEDS: *HR* LORazepam 1 MG TABLET PO PRN (21:55)
[2020-05-10] MEDS: Piperacillin/Tazobactam 3.375 GM in 0.9 % Sodium Chloride Mini Bag 100 ML IVPB SCH ×2 (00:53→07:55)
[2020-05-10 04:25] LABS: Hematocrit 30.7 % (35.3-44.9); Mean Corpuscular HGB Conc 29.3 g/dL (31.6-35.5); Mean Corpuscular Hemoglobin 27.6 pg (28.0-33.3); Mean Corpuscular Volume 94.2 fL (83.0-100.0); Mean Platelet Volume 10.2 fL (9.4-12.4); Platelet Count 151 K/mcL (140-400); Red Blood Count 3.26 M/mcL (3.82-4.97); Red Cell Distribution Width 15.4 % (11.5-14.5); White Blood Count 4.5 K/mcL (4.3-11.1)
[2020-05-10 04:46] LABS: Calcium 8.4 mg/dL (8.6-10.3); Potassium 3.9 mEq/L (3.5-5.1)
[2020-05-10] MEDS: *HR* Heparin 5,000 UNIT/ML VIAL SQ SCH ×3 (05:22→20:23)
[2020-05-10] MEDS: Insulin LISPRO 300 UNITS/3 ML VIAL SQ SCH ×4 (07:48→20:24)
[2020-05-10] MEDS: Furosemide 40 MG/4 ML VIAL IVP SCH (07:55)
[2020-05-10] MEDS: Metoprolol 100 MG TABLET PO SCH ×2 (07:56→20:23)
[2020-05-10] MEDS: Aspirin Enteric Coated 81 MG Tablet PO SCH (07:56)
[2020-05-10] MEDS: Gabapentin 300 MG CAPSULE PO SCH ×2 (07:56→20:23)
[2020-05-10] MEDS: Anastrozole 1 MG TABLET PO SCH (07:56)
[2020-05-10] MEDS: Bacitracin/PolymyxinB OINT 14.17 GM TUBE TP SCH (10:35)
[2020-05-10] MEDS: Doxycycline 100 MG CAPSULE PO SCH (20:23)
[2020-05-10] MEDS: *HR* LORazepam 1 MG TABLET PO PRN (20:31)
[2020-05-11] MEDS: *HR* Heparin 5,000 UNIT/ML VIAL SQ SCH (05:20)
[2020-05-11 06:30] VITALS: BP 111/69
[2020-05-11 07:02] LABS: Mean Corpuscular Volume 93.5 fL (83.0-100.0)
[2020-05-11 07:03] LABS: Hematocrit 31.7 % (35.3-44.9); Hemoglobin 9.3 g/dL (11.5-15.4); Mean Corpuscular HGB Conc 29.3 g/dL (31.6-35.5); Mean Corpuscular Hemoglobin 27.4 pg (28.0-33.3); Mean Platelet Volume 10.7 fL (9.4-12.4); Platelet Count 158 K/mcL (140-400); Red Blood Count 3.39 M/mcL (3.82-4.97); Red Cell Distribution Width 15.1 % (11.5-14.5); White Blood Count 4.9 K/mcL (4.3-11.1)
[2020-05-11 07:11] LABS: Calcium 8.6 mg/dL (8.6-10.3); Magnesium 1.6 mg/dL (1.6-2.6)
[2020-05-11] MEDS: Insulin LISPRO 300 UNITS/3 ML VIAL SQ SCH ×2 (07:39→11:30)
[2020-05-11] MEDS: Gabapentin 300 MG CAPSULE PO SCH (08:11)
[2020-05-11] MEDS: Anastrozole 1 MG TABLET PO SCH (08:11)
[2020-05-11] MEDS: Doxycycline 100 MG CAPSULE PO SCH (08:11)
[2020-05-11] MEDS: Metoprolol 100 MG TABLET PO SCH (08:11)
[2020-05-11] MEDS: Bacitracin/PolymyxinB OINT 14.17 GM TUBE TP SCH (08:12)
[2020-05-11] MEDS: Aspirin Enteric Coated 81 MG Tablet PO SCH (08:12)
[2020-05-11] MEDS: Furosemide 40 MG/4 ML VIAL IVP SCH (08:12)
== END 2020-05-11 11:48 | DRG 602 ==
LOC: EMEROOARM 17:09 → 3ANU 17:09
PROVIDERS: ADMIT Student in an Organized Health Care Education/Training Program; ATTEND Student in an Organized Health Care Education/Training Program